=== PATIENT | male | born 1945 | race Caucasian/White ===

== ENCOUNTER 2019-07-28 06:00 | Outpatient (RCR) | payer OTHER, SELFPAY | END 2019-08-23 23:59 | disposition home or self-care (01) | LOC: SPT 06:00 | PROVIDERS: Family Provider Nurse Practitioner; PCP Nurse Practitioner; Referring Provider Orthopaedic Surgery; Visit Provider Orthopaedic Surgery | DX: M19.012 Primary osteoarthritis, left shoulder (principal); M75.102 Unspecified rotator cuff tear or rupture of left shoulder, not specified as traumatic | CPT/HCPCS: 97110; 97162; G0283 ==

== ENCOUNTER 2019-08-24 06:00 | Outpatient (RCR) | payer OTHER, SELFPAY | END 2019-09-14 14:19 | disposition home or self-care (01) | LOC: SPT 06:00 | PROVIDERS: PCP Nurse Practitioner; Visit Provider Orthopaedic Surgery | DX: M19.012 Primary osteoarthritis, left shoulder (principal); M75.102 Unspecified rotator cuff tear or rupture of left shoulder, not specified as traumatic | CPT/HCPCS: 97110; G0283 ==

== ENCOUNTER 2020-03-31 07:48 | Outpatient (CLI) | payer OTHER, SELFPAY ==
--- NOTE | 2020-03-31 07:54 | MR_ITS ---
WS: [id number] MRI CERVICAL SPINE HISTORY: CERVICAL PAIN COMPARISON: None available. Slight increase in the cervical lordosis. Posterior cervical alignment is normal. Mild disc desiccation and small osteophytes throughout the cervical spine. Mild anterior wedging of T 3. No edema is noted within the vertebral body. No cervical fractures. Signal within the cord is norm al. Craniocervical junction, C1 and C2 relationship, odontoid process and soft tissues are normal. C2-C3: Normal. C3-C4: Very shallow central disc protrusion without stenosis. Mild facet joint arthritis. There is a small amount of marrow edema in the LEFT facets with fluid in the facet joint. C4-C5: Shallow central disc protrusion. Small osteophytes with only mild foraminal narrowing. C5-C6: Small LEFT foraminal osteophytes. No high-grade stenosis. C6-C7: Small osteophytes with no stenosis. C7-T1: Very shallow central disc protrusion. No cord contact. Paraspinal soft tissue are normal. MR/MR cervical spin wo con* [id number] IMPRESSION: 1. No cervical spine fracture or significant stenosis. 2. Edema within the LEFT facets of C3-4 and a small amount of fluid in the fac et joint. May be posttraumatic or postinflammatory. 3. Mild anterior wedging of T3 without acute marrow edema.
== END 2020-03-31 07:49 | disposition home or self-care (01) ==
LOC: RADSHAW 07:50
PROVIDERS: PCP Nurse Practitioner; Visit Provider Nurse Practitioner
DX: M48.54XA Collapsed vertebra, not elsewhere classified, thoracic region, initial encounter for fracture (principal); R60.0 Localized edema
CPT/HCPCS: 72141

== ENCOUNTER 2020-05-31 14:16 | Outpatient (CLI) | payer OTHER, SELFPAY ==
--- NOTE | 2020-05-31 15:00 | USCV_ITS ---
Sofia Abdullahi Age: 74 Gender: M : 1945 Exam Date: 05/31/2020 14:48 Ordering Phys: Orion Pichardo M.D ([email or web address]) Technologist: Misa Rey [place] [facility] [place]: [place] BP: / HR: 53 Rhythm: Sinus Technical Quality: Adequate MEASUREMENTS (Male / Female) Normal Values 2D ECHO LV Diastolic Diameter PLAX 5.6 cm 4.2 - 5.9 / 3.9 - 5.3 cm LV Systolic Diameter PLAX 3.6 cm LV Chamber Size 5.6 cm IVS Diastolic Thickness 1.4 cm 0.6 - 1.0 / 0.6 - 0.9 cm IVS Systolic Thickness 1.9 cm LVPW Diastolic Thickness 0.9 cm 0.6 - 1.0 / 0.6 - 0.9 cm LVPW Systolic Thickness 1.0 cm RV Chamber Size 3.9 cm LVOT Diameter 2.0 cm LV Ejection Fraction 2D Teich 65.7 % LV Ejection Fraction MOD 2C 67.3 % LV Ejection Fraction 2C AL 68.5 % LA Diameter 4.2 cm LA Width 4.9 cm LA Height 5.7 cm RA Width 4.8 cm RA Height 5.9 cm Aorta at Sinotubular Diameter 2.6 cm M-MODE LV Diastolic Diameter MM 5.5 cm 4.2 - 5.9 / 3.9 - 5.3 cm LV Systolic Diameter MM 3.4 cm LV Ejection Fraction MM Teich 68.0 % IVS Diastolic Thickness MM 1.2 cm 0.6 - 1.0 / 0.6 - 0.9 cm IVS Systolic Thickness MM 2.1 cm LVPW Diastolic Thickness MM 1.4 cm 0.6 - 1.0 / 0.6 - 0.9 cm LVPW Systolic Thickness MM 1.8 cm RV Diastolic Diameter MM 1.3 cm Aortic Annulus Diameter 3.1 cm LA Ao Ratio MM 1.4 MV E Point Septal Separation 0.3 cm DOPPLER AV Peak Velocity 142.0 cm/s LVOT Peak Velocity 110.0 cm/s AV Area Cont Eq vti 2.3 cm squared AV Area Cont Eq pk 2.5 cm squared MV Area PHT 4.0 cm squared Mitral E to A Ratio 3.2 MV E' Velocity 53.5 cm/s Mitral E to MV E' Ratio 10.1 Mitral E to LV E' Lateral Ratio 8.6 Mitral E to LV E' Septal Ratio 12.3 TR Peak Velocity 211.7 cm/s TR Peak Gradient 17.9 mmHg TR Mean Velocity 175.2 cm/s TR Mean Gradient 12.7 mmHg TR Velocity Time Integral 51.8 cm TV Peak E Velocity 66.0 cm/s Right Atrial Pressure 3.0 mmHg Pulmonary Artery Systolic Pressu 20.9 mmHg PV Peak Velocity 94.0 cm/s RV Acceleration Time 0.1 s RV Ejection Time 0.3 s RV AcT/ET 0.3 FINDINGS Left Ventricle Normal left ventricular size. LV systolic function is normal with EF of 55 to 60%. No regional wall motion abnormalities are seen. Normal diastolic filling pattern. Right Ventricle The right ventricle is normal in size and function. Right Atrium The right atrium is normal in size. Left Atrium The left atrium is dilated Mitral Valve Structurally normal mitral valve without significant stenosis or prolapse. There is trace mitral regurgitation. Aortic Valve Structurally normal aortic valve without significant sclerosis or stenosis. There is no aortic regurgitation. Tricuspid Valve Structurally normal tricuspid valve without significant stenosis or regurgitation. Insufficient TR jet to calculate RVSP Pulmonic Valve Structurally normal pulmonic valve without significant stenosis. There is no pulmonic regurgitation. Pericardium Normal pericardium without effusion. Aorta Normal ascending aorta dimension. CONCLUSIONS LV systolic function is normal with EF of 55-60% Diastolic function is normal LV is dilated Trace aortic regurgitation is noted. Trace mitral regurgitation is seen No comparison studies are available. Orion Pichardo MD (Electronically Signed) Final Date: 10 June 2020 15:24 S
== END 2020-05-31 14:17 | disposition home or self-care (01) ==
LOC: RAD 14:19
PROVIDERS: PCP Nurse Practitioner; Visit Provider Internal Medicine
DX: R00.1 Bradycardia, unspecified (principal); R06.02 Shortness of breath; I08.0 Rheumatic disorders of both mitral and aortic valves
CPT/HCPCS: 93306

== ENCOUNTER → 2020-08-04 08:58 | Outpatient (BNVA) | payer OTHER, SELFPAY | PROVIDERS: PCP Nurse Practitioner; Referring Provider Nurse Practitioner Family; Visit Provider Urology | DX: R97.20 Elevated prostate specific antigen [PSA] (principal); R33.9 Retention of urine, unspecified; N40.1 Benign prostatic hyperplasia with lower urinary tract symptoms; N52.9 Male erectile dysfunction, unspecified | CPT/HCPCS: 81003; G0103 ==

== ENCOUNTER 2020-08-11 10:48 | Outpatient (CLI) | payer OTHER, SELFPAY ==
--- NOTE | 2020-08-11 11:01 | USCV_ITS ---
Abdullahi Black Age: 75 Gender: M : 1945 Exam Date: 08/11/2020 10:46 Ordering Phys: Viky Washington Technologist: Exam Location: [facility] – [place] Indication: EDEMA RIGHT LEFT Brachial 160.00 mmHg Brachial 159.00 mmHg Pressure (mmHg) Waveform Pressure (mmHg) Waveform WILDLIFE CONSERVATIONIST 198.00 223.00 DPA 201.00 Ankle/Brachial Index 1.26 118.00 Pre-Exercise Toe Pressure 132.00 0.74 Pre-Exercise Toe/Brachial Index 0.83 FINDINGS Normal resting ANJELICA on the left side Noncompressible vessels on the right side Normal resting TBIs bilaterally CONCLUSIONS No evidence of any significant arterial obstruction, based on the above findings. Some features of arterial sclerosis bilaterally Dr Jamaal Jose MD [facility] (Electronically Signed) Final Date: 11 Aug 2020 19:01 S
== END 2020-08-11 10:49 | disposition home or self-care (01) ==
LOC: RAD 10:52
PROVIDERS: PCP Nurse Practitioner; Visit Provider Nurse Practitioner
DX: R60.9 Edema, unspecified (principal)
CPT/HCPCS: 93922

== ENCOUNTER 2020-09-29 10:44 | Emergency (ER) | payer OTHER, MEDICARE, SELFPAY ==
[2020-09-29 11:01] VITALS: BP 137/66; PULSE 59; RESP 18; TEMP 37; O2SAT 93; BMI 28.5
--- NOTE | 2020-09-29 11:52 | ECG_ITS ---
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 Measurements Intervals [place] Rate: 55 P: 43 [place]: 170 QRS: -20 QRSD: 104 T: 41 QT: 440 QTc: 424 Interpretive Statements SINUS BRADYCARDIA No previous ECG available for comparison Electronically Signed On 09-30-2020 6:15:15 CDT by Vy Sharp M.D. [id number]
[2020-09-29 12:12] VITALS: PULSE 57; RESP 19; O2SAT 91
[2020-09-29] MEDS: ipratropium-albuterol 3 mL Neb INHALATION (12:14)
[2020-09-29 12:19] VITALS: PULSE 60
--- NOTE | 2020-09-29 12:37 | ED_ITS ---
HPI - Weakness General: Chief complaint: Weakness Stated complaint: diarrhea, dizzy, body aches Time Seen by Provider: 09/29/20 11:42 History of Present Illness: HPI Narrative: The patient is a 75-year-old male who comes to the ER complaining of nausea and significant number of diarrhea as well as weakness. He had the Covid vaccine on September 21. His symptoms have been worsening for the past 6 days and he is slightly confused and hard of hearing. Answers questions appropriately when he is focused. He also says he has chronic COPD and has mild wheezing. MD Complaint: generalized weakness and lack of energy Onset (ago): day(s) (6) Duration: constant and progressively worsening Location: generalized Severity: moderate Relieving factors: none Exacerbating factors: none Context: other (Covid vaccine September 21) Associated symptoms: Reports nausea; Denies chest pain, chills, confusion, fever(s), headache(s) or vomiting Review of Systems General: Reports: 10 or more systems reviewed and unremarkable except in HPI and below Const: Reports: fatigue; Denies: fever(s) or chills Eyes: Denies: change in vision, blurry vision or eye redness ENMT: Denies: throat pain, swelling of lips/tongue, ear or mastoid pain or nasal congestion Card: Denies: chest pain, palpitations, irregular heart rhythm, edema, dyspnea on exertion or orthopnea Resp: Denies: dyspnea, productive cough or non-productive cough GI: Reports: nausea and diarrhea; Denies: abdominal pain, vomiting or GI cramping : Denies: flank pain, urinary frequency or urinary urgency Musc: Denies: neck pain, back pain, extremity pain, joint pain, joint redness, limited range of motion or muscle weakness Skin/Breast: Denies: rash, pruritus, erythema, skin pain or skin tenderness Neuro: Denies: headache(s), numbness in extremities, weakness in extremities, sensory changes, difficulty walking, dizziness, confusion or Slurred speech present Psych: Denies: anxiety or depression Endo: Denies: polyuria All/Imm: Denies: urticaria, throat swelling or tongue swelling PFSH ED PFSH: Medical History BPH loc w urin obs/LUTS Elevated PSA Erectile dysfunction Hyperlipidemia Hypertension Family History Father , AT AGE 70 Heart attack Mother , AT AGE 68 Heart attack Social History Smoking and tobacco status: never smoked Alcohol intake: former Marital status: Single Current occupational status: retired History of recent travel: No Physical Exam Const: COMMON NORMALS: no acute distress, average body habitus, patient oriented x3, no limitations, healthy appearing, alert and well nourished GENERAL APPEARANCE: cooperative, comfortable, well kempt and well developed ORIENTATION/CONSCIOUSNESS: Yes awake, Yes oriented to person, Yes oriented to place and Yes oriented to time HENMT: COMMON NORMALS: normocephalic, external ears normal and Normal external nose present HEAD & SCALP: normal to inspection and normocephalic NOSE: Normal external nose present EXTERNAL EAR: Yes external ears normal MOUTH: Normal oral and palatal mucosa present THROAT: posterior oropharynx normal Eye: COMMON NORMALS: Equal, round and reactive pupils present and EOMs intact bilaterally GENERAL EYE: appearance normal, both eyes and all related structures PUPIL: Yes Equal, round and reactive pupils present Neck/C-Spine: COMMON NORMALS: full ROM, no lymphadenopathy, no meningeal signs and no JVD GENERAL: Yes normal visual inspection Lymph: LYMPHATIC: no lymphadenopathy noted Chest: COMMONS NORMALS: normal inspection of the chest and normal palpation of entire chest wall Resp: COMMON NORMALS: normal respiratory effort, No retractions, No use of accessory muscles and percussion normal EFFORT & INSPECTION: Yes able to speak in complete sentences AUSCULTATION: wheezes PERCUSSION: percussion normal OTHER: Mild bilateral wheezing. Cardio: COMMON NORMALS: no JVD, regular rate, regular rhythm, S1 normal heart sound present, S2 normal heart sound present and Peripheral pulses 2+ throughout RATE: regular rate RHYTHM: regular rhythm HEART SOUNDS: S1 normal heart sound present and S2 normal heart sound present PERIPHERAL PULSES: Peripheral pulses 2+ throughout GI: COMMON NORMALS: Normal to inspection, nondistended, normoactive bowel sounds present, Soft to palpation, non-tender and no masses INSPECTION: Yes normal to inspection PALPATION: Yes Soft to palpation : COMMON NORMALS: Yes no CVA tenderness BLADDER/KIDNEY EXAM: Yes no CVA tenderness Back/Pelvis: COMMON NORMALS: no CVA tenderness, thoracic and lumbar spine normal to inspection, no thoracic nor lumbar tenderness and thoraco-lumbar ROM normal Extremity: COMMON NORMALS: normal to inspection, full ROM, capillary refill normal, no joint enlargement and no pedal edema GENERAL: Yes normal exam except as noted Neuro: COMMON NORMALS: patient oriented x3, CN's II-XII intact bilaterally, moves all extremities, no focal motor deficits, no sensory deficits noted and gait normal SENSORIUM/ORIENTATION: Yes alert, Yes oriented to person, Yes oriented to place and Yes oriented to time MENINGEAL SIGNS: Yes no meningeal signs Psych: COMMON NORMALS: mental status grossly normal, Normal thought process present, cooperative, normal affect and speech normal APPEARANCE: Yes well kempt ATTITUDE: Yes calm SPEECH: Yes normal speech THOUGHT PROCESS: Normal thought process present Skin: COMMON NORMALS: no rashes or lesions noted GENERAL SKIN EXAM: no rashes or lesions noted Course Vital Signs: Vital signs: Vital Signs Temperature 98.8 F 09/29/20 13:02 Pulse Rate 61 09/29/20 13:02 Respiratory Rate 18 09/29/20 13:02 Blood Pressure 137/63 09/29/20 13:02 Pulse Oximetry 93 09/29/20 13:02 MDM - Weakness MDM Narrative: Medical decision making narrative: Patient felt significantly improved after a liter of fluids and Zofran. He was requesting discharge. I filled out the paperwork. Follow-up with primary care physician Saturday and ER with worsening symptoms. Drink lots of fluids. Take Zofran to help with your nausea and vomiting. Lab Data: Labs: Lab Results 09/29/20 09/29/20 09/29/20 Range/Units 12:55 12:55 12:55 WBC 3.5 L (4.0-10.0) 10^3/ uL RBC 4.52 (4.1-5.3) 10^6/u L Hgb 13.8 (11.7-16.6) g/dL Hct 39.5 L (42.0-52.0) % MCV 87.4 (80-94) fL MCH 30.5 (28.0-34.0) pg MCHC 34.9 (30.0-36.0) g/dL RDW 11.5 L (12.1-15.1) % Plt Count 111 L (130-400) 10^3/c mm MPV 10.9 H (7.4-10.4) fL Neut % (Auto) 65.6 % Lymph % (Auto) 23.4 % [place] % (Auto) 10.7 % Eos % (Auto) 0.0 % Baso % (Auto) 0.0 % Neut # (Auto) 2.32 (1.8-7.7) 10^3/u L Lymph # (Auto) 0.8 (0.8-4.8) 10^3/u L [place] # (Auto) 0.4 (0.2-0.9) 10^3/u L Eos # (Auto) 0.0 (0.0-0.8) 10^3/u L Baso # (Auto) 0.0 (0.0-0.1) 10^3/u L Nucleated RBC % (a uto) 0 % Nucleated RBCs # 0.0 /100WBC Sodium 133 L (136-145) mmol/L Potassium 3.8 (3.5-5.1) mmol/L Chloride 98 (98-107) mmol/L Carbon Dioxide 23 (22-29) mmol/L Anion Gap 15.8 (5-19) BUN 17 (8-23) mg/dL Creatinine 0.9 (0.7-1.2) mg/dL GFR Calculation Not Reportable Glucose 130 H (65-115) mg/dL Calculated Osmolal ity 279 L (285-295) mOsm/k g Calcium 8.0 L (8.5-10.5) mg/dL Total Bilirubin 0.9 (0.15-1.2) mg/dL AST 39 (0-40) U/L ALT 27 (0-41) U/L Alkaline Phosphata se 72 (40-130) IU/L Troponin T Baselin e 16 H (0-15) ng/L Total Protein 6.1 L (6.6-8.7) g/dL Albumin 3.7 (3.5-5.2) g/dL Globulin 2.4 (1.3-4.6) g/dL Discharge Plan Discharge Patient Disposition: Home Clinical Impression: Dehydration, Diarrhea Condition: Stable Prescriptions: New ondansetron 4 mg tablet,disintegrating 4 mg PO Q8H PRN (Reason: Nausea And Vomiting) 4 Days Qty: 12 RF: 0 No Action tamsulosin 0.4 mg capsule 0.4 mg PO BID Qty: 180 RF: 3 sildenafil 100 mg tablet 100 mg PO DAILY PRN (Reason: Edema) RF: 0 finasteride 5 mg tablet 5 mg PO DAILY RF: 0 Vitamin C 1 tab PO DAILY RF: 0 Vitamin D3 1 tab pt DAILY RF: 0 zinc 1 tab PO DAILY RF: 0 Discharge Orders: Discharge ED (Routine); Ordered 09/29/20 Ordered By: Jayson Humphrey Referrals: Viky Washington FNP [Primary Care Provider] - Discharge Diet: Advance as tolerated Discharge Activity: Resume usual activity Patient Instructions: Diarrhea - Adult, Dehydration (ED), Opioid Safety Activity Restrictions/Additional Instructions: You possibly have diarrhea related to a side effect from a vaccine. Please drink lots of fluids and use the Zofran to help with your nausea. Return to the ER at anytime with worsening symptoms otherwise follow-up with your primary care physician Saturday. Coding Level of Care Code ED Planishing Press Operator for Agustin Fwd Exam Comprehensive
[2020-09-29] MEDS: sodium chloride 0.9% 1,000 ML 999 ML IV (13:01)
[2020-09-29 13:02] VITALS: BP 137/63; PULSE 61; RESP 18; TEMP 37.1; O2SAT 93
[2020-09-29] MEDS: ondansetron 2 mg/ML SDV 2 mL 4 MG IVP (13:02)
[2020-09-29 13:17] LABS: Hematocrit 39.5 % (42.0-52.0); Hemoglobin 13.8 g/dL (11.7-16.6); Lymphocytes # 0.8 10^3/uL (0.8-4.8); Lymphocytes % 23.4 %; Mean Corpuscular HGB Conc 34.9 g/dL (30.0-36.0); Mean Corpuscular Hemoglobin 30.5 pg (28.0-34.0); Mean Corpuscular Volume 87.4 fL (80-94); Mean Platelet Volume 10.9 fL (7.4-10.4); Monocytes # 0.4 10^3/uL (0.2-0.9); Monocytes % 10.7 %; Neutrophils # 2.32 10^3/uL (1.8-7.7); Neutrophils % 65.6 %; Nucleated Red Blood Cells % 0 %; Platelet Count 111 10^3/cmm (130-400); Red Blood Count 4.52 10^6/uL (4.1-5.3); Red Cell Distribution Width 11.5 % (12.1-15.1); White Blood Count 3.5 10^3/uL (4.0-10.0)
[2020-09-29 13:32] LABS: Troponin(5th) Baseline 16 ng/L (0-15)
[2020-09-29 13:36] LABS: Alanine Aminotransferase 27 U/L (0-41); Albumin Level 3.7 g/dL (3.5-5.2); Alkaline Phosphatase 72 IU/L (40-130); Anion Gap 15.8 (5-19); Aspartate Amino Transferase 39 U/L (0-40); Blood Urea Nitrogen 17 mg/dL (8-23); Carbon Dioxide 23 mmol/L (22-29); Chloride 98 mmol/L (98-107); Globulin 2.4 g/dL (1.3-4.6); Glucose 130 mg/dL (65-115); Osmolality Calculated 279 mOsm/kg (285-295); Potassium 3.8 mmol/L (3.5-5.1); Sodium 133 mmol/L (136-145); Total Bilirubin 0.9 mg/dL (0.15-1.2); Total Protein 6.1 g/dL (6.6-8.7)
--- NOTE | 2020-09-29 13:52 | ECG_ITS ---
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 Measurements Intervals [place] Rate: 56 P: 14 [place]: 164 QRS: -20 QRSD: 107 T: 41 QT: 451 QTc: 436 Interpretive Statements SINUS BRADYCARDIA MINIMAL VOLTAGE CRITERIA FOR LVH, CONSIDER NORMAL VARIANT [MEETS CRITERIA IN ONE OF: R(aVL), S(V1), R(V5), R(V5/V6)+S(V1)] Compared to ECG 09/29/2020 12:02:05 No significant changes Electronically Signed On 09-30-2020 6:36:27 CDT by Vy Sharp M.D. [id number]
[2020-09-29 14:23] VITALS: BP 133/69; PULSE 62; RESP 18; TEMP 37.2; O2SAT 97
== END 2020-09-29 14:33 | disposition home or self-care (01) ==
PROVIDERS: Emergency Provider Family Medicine; PCP Nurse Practitioner
DX: E86.0 Dehydration (principal); R19.7 Diarrhea, unspecified; E78.5 Hyperlipidemia, unspecified; I10 Essential (primary) hypertension
CPT/HCPCS: 80053; 84484; 85025; 93005; 94640; 96361; 96374; 99284; J2405; J7030

== ENCOUNTER 2020-09-30 06:22 | Emergency (ER) | payer OTHER, MEDICARE, SELFPAY ==
[2020-09-30 06:59] VITALS: BP 123/63; PULSE 61; RESP 16; TEMP 37.4; O2SAT 93; BMI 28.5
--- NOTE | 2020-09-30 07:30 | ED_ITS ---
HPI - COVID General: Chief Complaint: COVID symptoms Stated Complaint: COVID (+) YESTERDAY, FEELING WORSE TODAY Time Seen by Provider: 09/30/20 07:06 Triage information: Has fever, cough or shortness of breath . Exposure to COVID + person last 14 days History of Present Illness: HPI Narrative: 75-year-old male with a known history of Covid positive status he was diagnosed 1 week ago but have been having symptoms for several days prior to that he is outside of a 10-day window at this point. He was seen yesterday with nausea and vomiting poor oral intake and received IV fluids. He continues to have myalgias headache anosmia and cough cough has been nonproductive. He is not having any vomiting or diarrhea at this point. MD complaint: known COVID positive Prior testing date: 09/23/20 COVID 19 common symptoms: positive fever(s), chills, cough, non-productive cough, dyspnea, fatigue, body aches, headache(s), loss of sense of smell and/or taste, throat pain and nasal congestion; negative productive cough, vomiting or diarrhea COVID 19 other sytmptoms: negative chest pain or requiring oxygen Onset (ago): day(s) Severity: mild COVID Results: No Data to Display Review of Systems Const: Reports: fever(s), chills, body aches and fatigue ENMT: Reports: throat pain and nasal congestion Card: Denies: chest pain, edema, dyspnea on exertion or orthopnea Resp: Reports: dyspnea and non-productive cough; Denies: productive cough GI: Denies: vomiting or diarrhea : Denies: flank pain, dysuria, urinary frequency or urinary urgency Skin/Breast: Denies: rash or pruritus Neuro: Reports: headache(s) PFSH ED PFSH: Medical History BPH loc w urin obs/LUTS Elevated PSA Erectile dysfunction Hyperlipidemia Hypertension Family History Father , AT AGE 70 Heart attack Mother , AT AGE 68 Heart attack Social History Smoking and tobacco status: never smoked Alcohol intake: former Marital status: Single Current occupational status: retired History of recent travel: No Physical Exam Const: COMMON NORMALS: no acute distress GENERAL APPEARANCE: cooperative and comfortable ORIENTATION/CONSCIOUSNESS: Yes awake, Yes oriented to person, Yes oriented to place and Yes oriented to time HENMT: COMMON NORMALS: normocephalic, atraumatic and hearing grossly normal bilaterally HEAD & SCALP: normocephalic and atraumatic Neck/C-Spine: COMMON NORMALS: no JVD Resp: COMMON NORMALS: normal respiratory effort, No retractions, No use of accessory muscles and clear to auscultation bilaterally AUSCULTATION: clear to auscultation bilaterally Cardio: COMMON NORMALS: no JVD, regular rate, regular rhythm and No murmurs present (Cardio) RATE: regular rate RHYTHM: regular rhythm GI: COMMON NORMALS: Soft to palpation and No hepatosplenomegaly present AUSCULTATION: Yes normoactive bowel sounds PALPATION: Yes Soft to palpation, No Tenderness to palpation present (GI), No Guarding due to palpation present (GI) and Yes No hepatosplenomegaly present Extremity: COMMON NORMALS: normal to inspection, capillary refill normal, no clubbing, cyanosis or edema, no calf tenderness and no pedal edema Neuro: SENSORIUM/ORIENTATION: Yes oriented to person, Yes oriented to place and Yes oriented to time Skin: COMMON NORMALS: no rashes or lesions noted GENERAL SKIN EXAM: no rashes or lesions noted Course Vital Signs: Vital signs: Vital Signs Temperature 99.3 F 09/30/20 06:59 Pulse Rate 61 09/30/20 06:59 Respiratory Rate 16 09/30/20 07:47 Blood Pressure 123/63 09/30/20 06:59 Pulse Oximetry 93 09/30/20 07:47 MDM - COVID MDM Narrative: Medical decision making narrative: Vital signs are normal auscultation of the chest is clear to auscultation. There is no tachycardia no hypotension. Recommend continued p.o. fluids. His sats are good. Unfortunately he is past the timeframe for monoclonal antibody infusion. Supportive cares and follow-up with his primary care doctor as needed. We discussed the usual symptoms and course of the disease. COVID Results: No Data to Display Discharge Plan Discharge Patient Disposition: Home Clinical Impression: COVID-19 Condition: Stable Prescriptions: No Action tamsulosin 0.4 mg capsule 0.4 mg PO BID Qty: 180 RF: 3 sildenafil 100 mg tablet 100 mg PO DAILY PRN (Reason: Edema) RF: 0 finasteride 5 mg tablet 5 mg PO DAILY RF: 0 Vitamin C 1 tab PO DAILY RF: 0 Vitamin D3 1 tab pt DAILY RF: 0 zinc 1 tab PO DAILY RF: 0 ondansetron 4 mg tablet,disintegrating 4 mg PO Q8H PRN (Reason: Nausea And Vomiting) 4 Days Qty: 12 RF: 0 Discharge Orders: Discharge ED (Routine); Ordered 09/30/20 Ordered By: Ke Wiggins Referrals: Viky Washington FNP [Primary Care Provider] - Discharge Diet: Usual diet Discharge Activity: Increase activity as tolerated Patient Instructions: Opioid Safety Coding Level of Care Code ED Filter Pulp Washer for Agustin Hankins
[2020-09-30 07:34] VITALS: O2SAT 93
[2020-09-30 07:47] VITALS: RESP 16; O2SAT 93
== END 2020-09-30 07:40 | disposition home or self-care (01) ==
PROVIDERS: Emergency Provider Family Medicine; PCP Nurse Practitioner
DX: U07.1 COVID-19 (principal); E78.5 Hyperlipidemia, unspecified; I10 Essential (primary) hypertension
CPT/HCPCS: 99281

== ENCOUNTER 2020-10-03 02:21 | Emergency (ER) | payer OTHER, MEDICARE, SELFPAY ==
[2020-10-03 02:27] VITALS: BP 148/76; PULSE 61; RESP 18; TEMP 36.9; O2SAT 92; BMI 28.5
[2020-10-03 07:19] VITALS: BP 148/76; PULSE 61; O2SAT 92
--- NOTE | 2020-10-03 09:21 | ED_ITS ---
HPI - General Adult General: Chief complaint: General Medical Stated complaint: BEING DEHYDRATED Time Seen by Provider: 10/03/20 03:12 History of Present Illness: HPI narrative: 89-year-old male who is more than 10 days out of his diagnosis of COVID-19. He presents with generalized weakness, malaise, cough, and congestion. He is not overly short of breath. He is not been having fever. He claims he is dehydrated , even though he has drank significant amounts of water and Powerade. Onset (ago): day(s) Radiation: non-radiation Pain Consistency: other Relieving factors: none Exacerbating factors: none Associated symptoms: Reports cough, headache(s), malaise and nausea; Deny chest pain, confusion, diaphoresis, dyspnea, fevers/chills, rash or vomiting Review of Systems Const: Reports: malaise; Denies: diaphoresis Card: Denies: chest pain Resp: Denies: dyspnea GI: Reports: nausea; Denies: vomiting Skin/Breast: Denies: rash Neuro: Reports: headache(s); Denies: confusion PFSH ED PFSH: Medical History BPH loc w urin obs/LUTS Elevated PSA Erectile dysfunction Hyperlipidemia Hypertension Family History Father , AT AGE 70 Heart attack Mother , AT AGE 68 Heart attack Social History Smoking and tobacco status: never smoked Alcohol intake: former Marital status: Single Current occupational status: retired History of recent travel: No Physical Exam Const: GENERAL APPEARANCE: well developed ORIENTATION/CONSCIOUSNESS: Yes oriented to person, Yes oriented to place and Yes oriented to time HENMT: COMMON NORMALS: normocephalic, external ears normal and Normal external nose present HEAD & SCALP: normocephalic FACE & SINUS: normal facial exam NOSE: Normal external nose present and No nasal discharge present EXTERNAL EAR: Yes external ears normal Eye: COMMON NORMALS: Equal, round and reactive pupils present, EOMs intact bilaterally and conjunctivae normal EYELID: eyelids normal CONJUNCTIVA: Yes conjunctivae normal PUPIL: Yes Equal, round and reactive pupils present Neck/C-Spine: GENERAL: No tracheal deviation Chest: COMMONS NORMALS: normal inspection of the chest CHEST: No tenderness Resp: COMMON NORMALS: clear to auscultation bilaterally EFFORT & INSPECTION: No tachypneic, No respiratory distress, No retractions, No uses accessory muscles and No tracheal deviation AUSCULTATION: clear to auscultation bilaterally, no rhonchi, no wheezes and lung sounds not diminished Cardio: COMMON NORMALS: regular rate and regular rhythm RATE: regular rate RHYTHM: regular rhythm HEART SOUNDS: no murmurs PERIPHERAL PULSES: radial pulses present GI: INSPECTION: No abdominal distension AUSCULTATION: No Hyperactive bowel sounds present and No Hypoactive bowel sounds present PALPATION: No Guarding due to palpation present (GI) and No Rigid due to palpation Neuro: SENSORIUM/ORIENTATION: Yes oriented to person, Yes oriented to place and Yes oriented to time Psych: COMMON NORMALS: mental status grossly normal Skin: COMMON NORMALS: no rashes or lesions noted GENERAL SKIN EXAM: no rashes or lesions noted Course Vital Signs: Vital signs: Vital Signs Temperature 98.5 F 10/03/20 02:27 Pulse Rate 61 10/03/20 07:19 Respiratory Rate 18 10/03/20 02:27 Blood Pressure 148/76 10/03/20 07:19 Pulse Oximetry 92 10/03/20 07:19 MDM - General Adult MDM Narrative: Medical decision making narrative: Clinically not dehydrated. He is not tachycardic. He is afebrile here. Believe symptomatic treatment is his best course. He will be placed on guaifenesin for expectorant, and dexamethasone hopefully to help with malaise, muscle aches, etc. PCP follow-up. Discharge Plan Discharge Patient Disposition: Home Clinical Impression: COVID-19 Condition: Stable Prescriptions: New dexamethasone 6 mg tablet 6 mg PO DAILY Qty: 5 RF: 0 guaifenesin 600 mg tablet extended release 12hr 600 mg PO BID PRN (Reason: congestion) Qty: 14 RF: 0 No Action tamsulosin 0.4 mg capsule 0.4 mg PO BID Qty: 180 RF: 3 sildenafil 100 mg tablet 100 mg PO DAILY PRN (Reason: Edema) RF: 0 finasteride 5 mg tablet 5 mg PO DAILY RF: 0 Vitamin C 1 tab PO DAILY RF: 0 Vitamin D3 1 tab pt DAILY RF: 0 zinc 1 tab PO DAILY RF: 0 Discharge Orders: Discharge ED (Routine); Ordered 10/03/20 Ordered By: Geoffrey Boo Referrals: Viky Washington FNP [Primary Care Provider] - 1-3 days Discharge Diet: Advance as tolerated Discharge Activity: Increase activity as tolerated Patient Instructions: Acute Bronchitis (ED), Fatigue (ED) Activity Restrictions/Additional Instructions: Continue to drink plenty of liquids. Medications as directed. Return for worsening weakness despite treatment, fever greater than 100, other concerning symptoms. Coding Level of Care Code ED Seasonal Retail Merchandiser for [employer]
== END 2020-10-03 04:50 | disposition home or self-care (01) ==
PROVIDERS: Emergency Provider Emergency Medicine; PCP Nurse Practitioner
DX: U07.1 COVID-19 (principal)
CPT/HCPCS: 99282

== ENCOUNTER → 2020-11-03 09:26 | Outpatient (BNVA) | payer OTHER, MEDICARE, SELFPAY | PROVIDERS: PCP Nurse Practitioner; Visit Provider Urology | DX: N40.1 Benign prostatic hyperplasia with lower urinary tract symptoms (principal) | CPT/HCPCS: 81003 ==

== ENCOUNTER → 2020-11-11 09:35 | Outpatient (BNVA) | payer OTHER, SELFPAY | PROVIDERS: PCP Nurse Practitioner; Visit Provider Urology | DX: N40.1 Benign prostatic hyperplasia with lower urinary tract symptoms (principal); Z20.822 Contact with and (suspected) exposure to COVID-19 | CPT/HCPCS: 87635 ==

== ENCOUNTER 2020-11-17 16:13 | Observation (INO) | payer OTHER, SELFPAY ==
[2020-11-11 10:33] VITALS: BMI 26.4
--- NOTE | 2020-11-11 11:12 | ANES.PREANE2 ---
Pre-Anesthetic Assessment Pre-Anesthetic Assessment: Height/Weight: Height 1.83 m Weight 88.451 kg Preop Diagnosis: prostate cancer Proposed Procedure: Operation Date: 11/17/20 12:00 Proposed Procedures p Cystoscopy 18252 N40.1(Not Applicable) - Tab Royal MD s Transurethral Resection/Vaporization Of Prostate(Not Applicable) - Tab Royal MD Familial anesthetic complications: None Social: Social History: No alcohol and No tobacco Exam: Pre-Anes Outpt Exam: alert, oriented x 3, clear to auscultation bilaterally and regular rate & rhythm Airway: Cervical ROM: WNL MP: 1 Dentition: Full Pulmonary: Pulmonary: COPD Comments: covid-19 (doign well now) CV/HEM: CV/HEM: Arrythmia (bradycardia) and HTN Comments: ECHO CONCLUSIONS LV systolic function is normal with EF of 55-60% Diastolic function is normal LV is dilated Trace aortic regurgitation is noted. Trace mitral regurgitation is seen No comparison studies are available Metabolic: Metabolic: Hyperlipidemia Anesthetic Plan: ASA status: 3 Anesthesia: General Risk of > 500 ml blood loss (7ml/kg in children): No PFSH Anesthesia PFSH: Medical History BPH loc w urin obs/LUTS Elevated PSA Erectile dysfunction Hyperlipidemia Hypertension Family History Father , AT AGE 70 Heart attack Mother , AT AGE 68 Heart attack Social History Smoking and tobacco status: never smoked Alcohol intake: former Marital status: Single Current occupational status: retired History of recent travel: No Data Anesthesia Cardiac Studies: Holter Monitor 04/20/20
[2020-11-17] VITALS (15 sets, daily range): BP systolic 119–160; BP diastolic 71–95; PULSE 44–58; RESP 11–22; TEMP 36–36.6; O2SAT 95–97; BMI 26.4
[2020-11-17 11:54] LABS: Basophils % 0.3 %; Eosinophils # 0.3 10^3/uL (0.0-0.8); Eosinophils % 4.5 %; Hematocrit 39.2 % (42.0-52.0); Hemoglobin 13.3 g/dL (11.7-16.6); Lymphocytes # 1.5 10^3/uL (0.8-4.8); Lymphocytes % 24.7 %; Mean Corpuscular HGB Conc 33.9 g/dL (30.0-36.0); Mean Corpuscular Hemoglobin 29.8 pg (28.0-34.0); Mean Corpuscular Volume 87.9 fl (80-94); Mean Platelet Volume 10.2 fL (7.4-10.4); Monocytes # 0.6 10^3/uL (0.2-0.9); Monocytes % 9.4 %; Neutrophils # 3.74 10^3/uL (1.8-7.7); Neutrophils % 60.8 %; Nucleated Red Blood Cells % 0 %; Platelet Count 151 10^3/cmm (130-400); Red Blood Count 4.46 10^6/uL (4.1-5.3); Red Cell Distribution Width 12.5 % (12.1-15.1); White Blood Count 6.2 10^3/uL (4.0-10.0)
[2020-11-17 12:21] LABS: Anion Gap 14.9 (5-19); Blood Urea Nitrogen 16 mg/dL (8-23); Calcium 8.6 mg/dL (8.5-10.5); Carbon Dioxide 25 mmol/L (22-29); Chloride 103 mmol/L (98-107); Glucose 98 mg/dL (65-115); Osmolality Calculated 289 mOsm/kg (285-295); Potassium 3.9 mmol/L (3.5-5.1); Sodium 139 mmol/L (136-145)
--- NOTE | 2020-11-17 12:43 | P.HPUD_ITS ---
Surgery/Procedure H&P Update DATE OF PROCEDURE: November 17, 2020 DATE H&P PERFORMED: 11/03/20 H&P UPDATE INFORMATION: I have reviewed H&P completed within last 30 days, I have examined patient prior to procedure, No changes to prior documentation and H&P is in [facility] [place] on date indicated PREOP DIAGNOSIS: Refractory BPH/obstruction PLANNED PROCEDURE: Operation Date: 11/17/20 12:00 Proposed Procedures p Cystoscopy 74809 N40.1(Not Applicable) - Tab Royal MD s Transurethral Resection/Vaporization Of Prostate(Not Applicable) - Tab Royal MD
[2020-11-17] MEDS: levofloxacin-dextrose 5 % 500 MG/100 ML PREMIX 100 MG IV (12:45)
--- NOTE | 2020-11-17 12:49 | P.ANESUD_ITS ---
Pre-Anesthetic Update Pre-Anesthetic Assessment: Date of Surgery/Procedure: 11/17/20 Preop Ana Laura gnosis: Refractory BPH/obstruction Proposed Procedure: Operation Date: 11/17/20 12:00 Proposed Procedures p Cystoscopy 57758 N40.1(Not Applicable) - Tab Royal MD s Transurethral Resection/Vaporization Of Prostate(Not Applicable) - Tab Royal MD Any changes to Pre-Anesthetic Assessment?: No Last Intake: Intake Last Liquid Date 11/17/20 Last Liquid Time 06:00 Last Solid Date 11/16/20 Last Solid Time 18:00 Labs Last 48hrs: Laboratory Results - last 48 hr 11/17/20 11/17/20 11:48 11:48 WBC 6.2 RBC 4.46 Hgb 13.3 Hct 39.2 L MCV 87.9 MCH 29.8 MCHC 33.9 RDW 12.5 Plt Count 151 MPV 10.2 Neut % (Auto) 60.8 Lymph % (Auto) 24.7 [place] % (Auto) 9.4 Eos % (Auto) 4.5 Baso % (Auto) 0.3 Neut # (Auto) 3.74 Lymph # (Auto) 1.5 [place] # (Auto) 0.6 Eos # (Auto) 0.3 Baso # (Auto) 0.0 Nucleated RBC % (a uto) 0 Nucleated RBCs # 0.0 Sodium 139 Potassium 3.9 Chloride 103 Carbon Dioxide 25 Anion Gap 14.9 BUN 16 Creatinine 0.8 GFR Calculation Not Reportable Glucose 98 Calculated Osmolal ity 289 Calcium 8.6 Vitals: Oxygen Delivery Me thod 11/17/20 10:49 Exam: Pre-Anes Outpt Exam: alert, oriented x 3, clear to auscultation bilaterally and regular rate & rhythm Cardiac Studies: Holter Monitor 04/20/20
[2020-11-17] MEDS: lidocaine 2% Urojet 20 mL TOPICAL (13:16)
--- NOTE | 2020-11-17 13:59 | P.OP_ITS ---
Operative Report Date of procedure: November 17, 2020 Pre-op Diagnosis: Refractory BPH/obstruction Post-op diagnosis: same Procedure Done: Cystoscopy, transurethral resection/vaporization of the prostate Pathology: Prostate chips sampling Surgeon: Genny Anesthesia: General Estimated blood loss: Less than 50 cc Urine output: Not measured Complications: None Findings: Trilobar enlargement the prostate with very large intravesically protruding median lobe. Wide open the completion of procedure with excellent hemostasis Condition: stable Disposition: PACU Brief History: Abdullahi is a very pleasant 75-year-old white male with a history of progressive bladder outlet obstructive symptoms with persistent on medical therapy for BPH. Cystoscopy revealed severe trabeculation cellule formation and a huge intravesically protruding median lobe. Ultimately he elected TURP/TUVP. Procedure: After routine preoperative evaluation examination and obtaining of informed consent he was taken to the operating suite on 11/16/2020 where general anesthesia was administered without difficulty after appropriate timeout was performed, SCDs confirmed to be functioning, preoperative antibiotics administered, beta-emma protocol confirmed. Positioned dorsolithotomy position paying careful attention to avoiding pressure points. Prepped and draped in the usual sterile fashion. 21 Micronesian cystoscope with 30 degree lens was introduced into the urethra meatus and advanced into the bladder under videoscopy. Bladder was systematically examined confirming findings seen in clinic. Urethra was calibrated with Seb sounds and easily accommodated 30 Micronesian. 2% lidocaine jelly was instilled into the urethra and a 25 Micronesian continuous- flow resectoscope sheath with visual obturator in place was advanced into the bladder without difficulty and the gyrus bipolar system was utilized for resection utilizing initially the super loop and at the completion of the procedure the button probe. The orifices were identified to be well away from the bladder neck. Easily identifiable. The verumontanum was also easily identifiable. Super loop was used to resect initially the intravesically protruding median lobe down to the circular fibers of the bladder neck. Both lateral lobes were then resected from the bladder neck out to but not distal to the verumontanum. After adequate level of tissue was removed to open up the fossa the button probe was used for further vaporization of the lateral lobes and the floor the prostate paying careful attention to avoiding straying into the bladder near the orifices or distal to the verumontanum. The fossa was sculpted and confirmed hemostatic at the completion of the procedure and wide open A 22 Micronesian three-way Granger catheter was easily advanced into the bladder, 30 cc placed in the balloon, efflux was clear, low flow CBI was initiated with normal saline. Tolerated the procedure well without complications and was awakened in the operating room and returned to the recovery room in stable condition.
--- NOTE | 2020-11-17 16:23 | ANE.PACU2 ---
Inpatient post-anesthesia follow up: Airway intact: Yes Vital signs: Temperature 97.8 F Pulse Rate 48 Respiratory Rate 16 Blood Pressure 158/80 Pulse Oximetry 97 Oxygen Delivery Me thod Room Air Oxygen Flow Rate Fraction of Inspir ed Oxygen Hydration adequate: Yes Nausea and vomiting: No Pain level: 2 Mental status: Baseline
[2020-11-17] MEDS: dextrose 5%-sod chloride 0.9% 1,000 ML 50 ML IV (18:41)
[2020-11-17] MEDS: phenazopyridine 100 mg Tablet 200 MG PO (18:41)
[2020-11-17] MEDS: docusate sodium 100 mg Capsule PO (18:41)
[2020-11-18 02:15] VITALS: PULSE 58; O2SAT 95
[2020-11-18 03:38] VITALS: BP 152/77; PULSE 55; RESP 16; TEMP 36.6; O2SAT 95
[2020-11-18] MEDS: levoFLOXacin 500 mg Tablet PO (05:13)
--- NOTE | 2020-11-18 05:38 | PC.NURSE ---
Patient remained in bed throughout night without complaint. No c/o of pain, VSS, tolerating CBI and patent at a slow drip with yellow output. No new events over night, no needs at this time. AAOx3, room clutter free with call light in reach and tolerating diet. Will report and handoff patient to oncoming nurse at shift change.
--- NOTE | 2020-11-18 06:41 | P.DS_ITS ---
Discharge Providers Date of Admission: 11/17/20 16:13 Date of Discharge: November 18, 2020 Attending Provider at Admission: Tab Royal MD Attending Provider at Discharge: Tab Royal MD Primary Care Provider: SANTHOSH Callejas Reason for Visit Reason for Visit: BPH with obstruction Hospital Course Hospital Course He was admitted on 11/17/2020, day of surgery (TURP). Procedure went well. Intraoperative findings included a very large intravesically protruding median lobe and lateral lobe hypertrophy. At the completion of the procedure he was hemostatic and the prostatic fossa was wide open. Postoperatively he did well. The Granger catheter was removed on postoperative day #1 followed by 6 bottle void but he failed to void adequately and the catheter was replaced. Urine remained clear. Discharge on the afternoon of postoperative day #1 in stable condition. He was trained in a leg bag night bag changing. We will keep on antibiotics until catheter removed. Voiding trial and possible SCIC instruction on follow-up 11/23/2020. Physical Exam Const: COMMON NORMALS: no acute distress, alert and well nourished GENERAL APPEARANCE: well kempt and well developed ORIENTATION/CONSCIOUSNESS: not confused HENMT: COMMON NORMALS: normocephalic and atraumatic HEAD & SCALP: normocephalic and atraumatic Eye: COMMON NORMALS: conjunctivae normal CONJUNCTIVA: Yes conjunctivae normal Neck/C-Spine: COMMON NORMALS: full ROM GENERAL: Yes normal visual inspection Resp: COMMON NORMALS: normal respiratory effort EFFORT & INSPECTION: No labored and No Actively coughing Neuro: SENSORIUM/ORIENTATION: Yes alert Psych: COMMON NORMALS: mental status grossly normal APPEARANCE: Yes grossly normal and Yes well kempt ATTITUDE: Yes calm and Yes engaged Skin: COMMON NORMALS: no rashes or lesions noted and no jaundice GENERAL SKIN EXAM: no rashes or lesions noted Urinary Catheter Management^: 3-way Urethral CBI: Cath Placed During This Visit: yes Urinary Catheter Date of Insertion: 11/17/20 Urinary Catheter Time of Insertion: 13:47 Discharge Data Data Completed and Pending: Pending at discharge Category Date Time Status Pathology: Surgic al [PTH] Routine Pth 11/17/20 14:02 Ordered Labs from last 24 hours 11/17/20 11/17/20 11:48 11:48 WBC 6.2 RBC 4.46 Hgb 13.3 Hct 39.2 L MCV 87.9 MCH 29.8 MCHC 33.9 RDW 12.5 Plt Count 151 MPV 10.2 Neut % (Auto) 60.8 Lymph % (Auto) 24.7 [place] % (Auto) 9.4 Eos % (Auto) 4.5 Baso % (Auto) 0.3 Neut # (Auto) 3.74 Lymph # (Auto) 1.5 [place] # (Auto) 0.6 Eos # (Auto) 0.3 Baso # (Auto) 0.0 Nucleated RBC % (a uto) 0 Nucleated RBCs # 0.0 Sodium 139 Potassium 3.9 Chloride 103 Carbon Dioxide 25 Anion Gap 14.9 BUN 16 Creatinine 0.8 GFR Calculation Not Reportable Glucose 98 Calculated Osmolal ity 289 Calcium 8.6 Vitals: Last Vital Signs Temp 97.8 F 11/18/20 03:38 Pulse 55 L 11/18/20 03:38 Resp 16 11/18/20 03:38 BP 152/77 11/18/20 03:38 Pulse Ox 95 11/18/20 03:38 Discharge Plan Discharge Patient Disposition: Home Condition: Stable Prescriptions: New levofloxacin 250 mg tablet 250 mg PO DAILY 7 Days Qty: 7 RF: 0 Continued ramipril 1.25 mg capsule 1.25 mg PO DAILY RF: 0 amlodipine 10 mg tablet 10 mg PO DAILY RF: 0 tadalafil [Cialis] 5 mg tablet 5 mg PO DAILY RF: 0 sildenafil 100 mg tablet 100 mg PO DAILY PRN (Reason: Edema) RF: 0 finasteride 5 mg tablet 5 mg PO DAILY RF: 0 Vitamin C 1 tab PO DAILY RF: 0 zinc 1 tab PO DAILY RF: 0 Discharge Orders: Discharge Order (Routine); Ordered 11/18/20 Ordered By: Tab Royal Referrals: Tab Royal MD [Physician] - 11/23/20 (Voiding trial, SCIC instruction) Discharge Diet: Usual diet Discharge Activity: Limit activity as instructed Patient Instructions: Opioid Safety Activity Restrictions/Additional Instructions: 1. You can use either leg bag or night bag pending your preference. 2. We will see you back mid next week for catheter removal and voiding trial. Possible self-catheterization instruction 3. Please avoid strenuous activity. Avoid constipation. 4. Continue finasteride for now. We will stop it later Discharge Attestations Time Spent in Discharge Care*: greater than 30 min Specific Discharge Activities: educating patient, educating and/or supporting family/caregiver, documenting/other paperwork and evaluating patient/reviewing data Quality Metrics Clinical Quality Measures During this hospital stay, did patient experience: None Coding Level of Care Code Acute [facility] DC note Exam Detailed
--- NOTE | 2020-11-18 07:14 | PC.NURSE ---
Patient CBI catheter removed per physicians order. Tolerated well. Educated to use urinal when voiding and call out so that nurse can do voiding trial. Patient verbally acknowledged understanding.
[2020-11-18 08:00] VITALS: BP 153/84; PULSE 55; RESP 16; TEMP 36.4; O2SAT 97
[2020-11-18] MEDS: docusate sodium 100 mg Capsule PO (08:26)
[2020-11-18] MEDS: finasteride 5 mg Tablet PO (08:26)
[2020-11-18] MEDS: amlodipine 10 mg Tablet PO (08:26)
[2020-11-18] MEDS: lisinopril 5 mg Tablet PO (08:27)
[2020-11-18] MEDS: dextrose 5%-sod chloride 0.9% 1,000 ML 50 ML IV (08:27)
[2020-11-18 09:48] VITALS: PULSE 75; O2SAT 97
[2020-11-18 11:34] VITALS: BP 129/72; PULSE 57; RESP 18; TEMP 36.9; O2SAT 96
--- NOTE | 2020-11-18 13:17 | PC.NURSE ---
Urinary Catheter Urinary catheter insertion by Lizette NICHOLAS was monitored by this nurse. Sterile technique was maintained. Pt tolerated well. catheter used was a preston kit and 18 F coude. Documentation reviewed by this nurse as well.
--- NOTE | 2020-11-18 15:29 | PC.CHAP ---
Pastoral Care Encounter/Spiritual Assessment Type of Contact [] Declined administrative services officer visit [] Patient/Family/Request visit [] Outpatient visit [] Follow-up visit [] Physician referral [] Code/Alert [] Routine visit [] Staff referral [] Actively dying [] Patient sleeping [] Family support [] [] Out of room [] Palliative care [] [XX] Receiving care in room [] Pre-surgical visit [] Trauma [] Long length of stay [] ICU visit [] Other: Relational/Emotional Strength [] Patient feels connected with others/family/visitors/staff [] Distress [] Loneliness/isolation [] Abandonment Spirituality of Patient [] Person of Janae [] Attends Jain of their Janae [] Believes in Prayer [] Reads Bible or Buddhism materials [] There are Spiritual issues to be addressed Sack Cleaning Hand Interventions [] Prayer [] Active listening [] Non-anxious presence [] Spiritual/emotional support [] Crisis/trauma care [] Spiritual counseling [] Bereavement support [] Provided bereavement packet [] Provided Bible/devotional materials [] Provided toy/stuffed animal, coloring book to patient or family member [] Provided Communion [] Anointing/[place] [] Salvation [] Completed spiritual assessment [] Other: Impact on Illness or Injury [] Angry [] Fearful [] Anxious [] Often cries [] Exhaustion [] Unable to work [] Unable to attend pentecostal [] Unable to walk/stand [] Unable to read [] Unable to drive [] Unable to eat/drink [] Unable to sleep [] Unable to be with family [] Patient intubated [] Other: Summary Follow up needed Time spent with patient
[2020-11-18 16:00] VITALS: BP 128/62; PULSE 57; RESP 17; TEMP 36.6; O2SAT 94
== END 2020-11-18 17:35 | disposition home or self-care (01) ==
LOC: MEDSURG 16:14
PROVIDERS: Admitting Provider Urology; PCP Nurse Practitioner; Visit Provider Urology
PROC: 0TJB8ZZ Inspection of Bladder, Via Natural or Artificial Opening Endoscopic (ICD-10-PCS; CPT 52000; principal; 2020-11-17 12:00)
PROC: 0VT08ZZ Resection of Prostate, Via Natural or Artificial Opening Endoscopic (ICD-10-PCS; CPT 52601; 2020-11-17 12:00)
DX: N40.1 Benign prostatic hyperplasia with lower urinary tract symptoms (principal); N13.8 Other obstructive and reflux uropathy; Z86.16 Personal history of COVID-19; E78.5 Hyperlipidemia, unspecified; I10 Essential (primary) hypertension
CPT/HCPCS: 52601; 36415; 51702; 80048; 85025; 88305; G0378; J1100; J1956; J2405; J2704; J2710; J3010; J3490

== ENCOUNTER → 2020-11-29 14:43 | Outpatient (BNVA) | payer OTHER, SELFPAY | PROVIDERS: PCP Nurse Practitioner; Visit Provider Urology | DX: R30.0 Dysuria (principal) | CPT/HCPCS: 81003; 87077; 87086; 87184 ==

== ENCOUNTER → 2021-05-31 12:15 | Outpatient (BNVA) | payer OTHER, SELFPAY | PROVIDERS: PCP Nurse Practitioner; Visit Provider Internal Medicine | DX: R00.1 Bradycardia, unspecified (principal); I10 Essential (primary) hypertension; E78.5 Hyperlipidemia, unspecified | CPT/HCPCS: 99214 ==

== ENCOUNTER → 2021-08-01 09:17 | Outpatient (BNVA) | payer OTHER, SELFPAY | PROVIDERS: PCP Nurse Practitioner; Visit Provider Urology | DX: N40.1 Benign prostatic hyperplasia with lower urinary tract symptoms (principal); R97.20 Elevated prostate specific antigen [PSA]; N52.9 Male erectile dysfunction, unspecified | CPT/HCPCS: 51741; 51798; 81003; 99213 ==

== ENCOUNTER 2021-09-26 07:57 | Emergency (ER) | payer OTHER, MEDICARE, SELFPAY ==
[2021-09-26] VITALS (7 sets, daily range): BP systolic 131–160; BP diastolic 70–90; PULSE 46–60; RESP 15–19; TEMP 36.6; O2SAT 94–97; BMI 27.8
--- NOTE | 2021-09-26 07:58 | XRR_ITS ---
PROCEDURE INFORMATION: Exam: XR Chest Exam date and time: 09/26/2021 8:09 AM Age: 76 years old Clinical indication: Cough and dyspnea; Patient HX: Vertigo, fell and dizzy; Additional info: Dyspnea/cough TECHNIQUE: Imaging protocol: Radiologic exam of the chest. Views: 1 view. Total images: 4 COMPARISON: MR cervical spin wo con* [id number] 03/31/2020 8:16 AM FINDINGS: Lungs: Unremarkable. No consolidation. Pleural spaces: Unremarkable. No pleural effusion. No pneumothorax. Heart/Mediastinum: Unremarkable. No cardiomegaly. Bones/joints: Unremarkable. XR/XR chest 1V portable [id number] IMPRESSION: No acute findings.
--- NOTE | 2021-09-26 07:59 | ECG_ITS ---
[facility] Test Date: 2021-09-26 Pat Name: Abdullahi Black Department: Room: Gender: Male Lopper: : 1945 Requested By: Ke Masterson Order Number: [id number] Annie MD: Robinson Marin M.D. Measurements Intervals [place] Rate: 48 P: 38 WA: 159 QRS: 4 QRSD: 100 T: 57 QT: 458 QTc: 411 Interpretive Statements SINUS BRADYCARDIA Compared to ECG 09/29/2020 14:18:59 No significant changes Electronically Signed On 09-26-2021 16:52:19 CDT by Robinson Marin M.D. [id number]
--- NOTE | 2021-09-26 08:13 | CT_ITS ---
WS: [id number] CT HEAD TECHNIQUE: Noncontrast CT of the head obtained from the skullbase to the vertex. CLINICAL INFORMATION: dizziness COMPARISON: None. DLP: 989.[address] scans at [facility] use at least one of these dose optimization techniques: automated e xposure control; mA and/or kV adjustment per patient size (includes targeted exams where dose is matc hed to clinical indication); or iterative reconstruction. FINDINGS: No evidence of intracranial hemorrhage or mass effect. Ventricular system and basal cisterns are carlson nt. Mild small vessel changes with mild parenchymal volume loss. No extra-axial fluid collections. No evidence of mass or mass effect. Cavernous carotid calcification. Paranasal sinuses and mastoid air cells are well aerated. .Normal visualized soft tissues. CT/CT head wo con* [id number] IMPRESSION: 1. No evidence of intracranial hemorrhage or mass effect. 2. Mild small vessel changes with mild parenchymal volume loss. 3. No acute intracranial findings.
--- NOTE | 2021-09-26 08:20 | ED_ITS ---
HPI - Dizziness General: Chief Complaint: Dizziness Stated Complaint: htn Time Seen by Provider: 09/26/21 07:57 Source: patient Mode of arrival: EMS Limitations: no limitations History of Present Illness: HPI Narrative: 76-year-old male presents the emergency room with complaint of elevated blood pressure and dizziness. He notes the dizziness with postural changes and with any movement of his head. He said similar episodes in the past earlier his blood pressure was significantly elevated EMS gave him a single nitro tablet. Blood pressure improved to 150s over 80s. He is awake and alert he denies any chest pain no vision changes no focal localizing neurologic deficits. Symptoms began this morning. MD elicited complaint: dizziness Pertinent past history: BPPV Onset (ago): hour(s) Timing: sudden onset Severity: mild Description: room spinning Context: change in body position Exacerbating factors: movement/ambulation and change in body position Relieving factors: remaining still, rest and lying down Associated symptoms: Denies change in hearing, chest pain, chills, cough, diaphoresis, ear discharge, ear pressure, fevers/chills, headache(s), malaise, nausea, nasal congestion, palpitations, rash, short of breath, syncope, tinnitus, vomiting or weakness Associated neuro symptoms: Deny confusion, difficulty speaking, dysphagia, diplopia, extremity weakness, facial numbness, facial weakness, gait changes, numbness in extremities or visual changes Review of Systems Const: Denies: fever(s), chills, fatigue, malaise or diaphoresis ENMT: Denies: throat pain, ear discharge, change in hearing, tinnitus or nasal congestion Card: Denies: chest pain, palpitations or syncope Resp: Denies: dyspnea, productive cough or non-productive cough GI: Denies: abdominal pain, nausea, vomiting or dysphagia : Denies: flank pain, difficulty urinating, dysuria, urinary frequency or urinary urgency Skin/Breast: Denies: rash or pruritus Neuro: Reports: dizziness and vertigo; Denies: headache(s), numbness in extremities or confusion PFSH ED PFSH: Medical History BPH loc w urin obs/LUTS Benign pathology at [facility] October 2020 Elevated PSA Erectile dysfunction Hyperlipidemia Hypertension Family History Father , AT AGE 70 Heart attack Mother , AT AGE 68 Heart attack Social History Smoking and tobacco status: never smoked Alcohol intake: never Marital status: Current occupational status: retired History of recent travel: No Physical Exam Const: GENERAL APPEARANCE: cooperative and comfortable ORIENTATION/CONSCIOUSNESS: Yes awake, Yes oriented to person, Yes oriented to place and Yes oriented to time HENMT: COMMON NORMALS: normocephalic, atraumatic, hearing grossly normal bila terally, external ears normal, EAC's normal, TM's normal bilaterally, Normal nasal mucous membranes and turbinates present, moist oral mucous membranes and oropharynx normal HEAD & SCALP: normocephalic and atraumatic NOSE: Normal nasal mucous membranes and turbinates present EXTERNAL EAR: Yes external ears normal EXTERNAL AUDITORY CANAL: EAC's normal TYMPANIC MEMBRANE: TM's normal bilaterally Eye: COMMON NORMALS: Equal, round and reactive pupils present, EOMs intact bilaterally, conjunctivae normal and no scleral icterus CONJUNCTIVA: Yes conjunctivae normal PUPIL: Yes Equal, round and reactive pupils present Neck/C-Spine: COMMON NORMALS: no JVD Resp: COMMON NORMALS: normal respiratory effort, No retractions, No use of accessory muscles and clear to auscultation bilaterally AUSCULTATION: clear to auscultation bilaterally Cardio: COMMON NORMALS: no JVD, regular rate, regular rhythm and No murmurs present (Cardio) RATE: regular rate RHYTHM: regular rhythm GI: COMMON NORMALS: Soft to palpation and No hepatosplenomegaly present AUSCULTATION: Yes normoactive bowel sounds PALPATION: Yes Soft to palpation, No Tenderness to palpation present (GI), No Guarding due to palpation present (GI) and Yes No hepatosplenomegaly present Extremity: COMMON NORMALS: normal to inspection, capillary refill normal, no clubbing, cyanosis or edema, no calf tenderness and no pedal edema Neuro: SENSORIUM/ORIENTATION: Yes oriented to person, Yes oriented to place and Yes oriented to time Skin: COMMON NORMALS: no rashes or lesions noted GENERAL SKIN EXAM: no rashes or lesions noted Course Vital Signs: Vital signs: Vital Signs Temperature 97.9 F 09/26/21 08:01 Pulse Rate 52 L 09/26/21 11:17 Respiratory Rate 18 09/26/21 10:00 Blood Pressure 160/88 09/26/21 11:17 Pulse Oximetry 97 09/26/21 11:17 MDM - Dizziness Medical Decision Making Symptoms were reproducible while in the emergency room with rotation of his head with the medication particularly Ativan that resolved we will go ahead and disc harge him home have him follow-up with his primary care doctor return if he has further problems. Medical Records I reviewed the patient's medical records. Lab Data I reviewed the patient's lab results. : 09/26/21 08:07 09/26/21 08:07 Radiology Impressions Chest X-Ray 09/26/21 07:58 IMPRESSION: No acute findings. Head CT 09/26/21 08:13 IMPRESSION: 1. No evidence of intracranial hemorrhage or mass effect. 2. Mild small vessel changes with mild parenchymal volume loss. 3. No acute intracranial findings. Laboratory Results WBC 6.2 10^3/uL (4.0-10.0) 09/26/21 08:07 RBC 4.60 10^6/uL (4.1-5.3) 09/26/21 08:07 Hgb 14.0 g/dL (11.7-16.6) 09/26/21 08:07 Hct 40.2 % (42.0-52.0) L 09/26/21 08:07 MCV 87.4 fl (80-94) 09/26/21 08:07 MCH 30.4 pg (28.0-34.0) 09/26/21 08:07 MCHC 34.8 g/dL (30.0-36.0) 09/26/21 08:07 RDW 11.9 % (12.1-15.1) L 09/26/21 08:07 Plt Count 124 10^3/cmm (130-400) L 09/26/21 08:07 MPV 10.9 fL (7.4-10.4) H 09/26/21 08:07 Neut % (Auto) 62.7 % 09/26/21 08:07 Lymph % (Auto) 25.7 % 09/26/21 08:07 [place] % (Auto) 8.7 % 09/26/21 08:07 Eos % (Auto) 2.3 % 09/26/21 08:07 Baso % (Auto) 0.3 % 09/26/21 08:07 Neut # (Auto) 3.87 10^3/uL (1.8-7.7) 09/26/21 08:07 Lymph # (Auto) 1.6 10^3/uL (0.8-4.8) 09/26/21 08:07 [place] # (Auto) 0.5 10^3/uL (0.2-0.9) 09/26/21 08:07 Eos # (Auto) 0.1 10^3/uL (0.0-0.8) 09/26/21 08:07 Baso # (Auto) 0.0 10^3/uL (0.0-0.1) 09/26/21 08:07 Nucleated RBC % (auto) 0 % 09/26/21 08:07 Nucleated RBCs # 0.0 /100WBC 09/26/21 08:07 Sodium 139 mmol/L (136-145) 09/26/21 08:07 Potassium 4.0 mmol/L (3.5-5.1) 09/26/21 08:07 Chloride 104 mmol/L (98-107) 09/26/21 08:07 Carbon Dioxide 22 mmol/L (22-29) 09/26/21 08:07 Anion Gap 17.0 (5-19) 09/26/21 08:07 BUN 23 mg/dL (8-23) 09/26/21 08:07 Creatinine 1.0 mg/dL (0.7-1.2) 09/26/21 08:07 GFR Calculation Not Reportable 09/26/21 08:07 Glucose 121 mg/dL (65-115) H 09/26/21 08:07 Calculated Osmolality 293 mOsm/kg (285-295) 09/26/21 08:07 Calcium 9.0 mg/dL (8.5-10.5) 09/26/21 08:07 Magnesium 1.9 mg/dL (1.7-2.3) 09/26/21 08:07 Total Bilirubin 1.0 mg/dL (0.15-1.2) 09/26/21 08:07 AST 18 U/L (0-40) 09/26/21 08:07 ALT 18 U/L (0-41) 09/26/21 08:07 Alkaline Phosphatase 72 IU/L (40-130) 09/26/21 08:07 Troponin T Baseline 18 ng/L (0-15) H 09/26/21 08:07 Troponin T 120 Minute 17.16 ng/L (0-15) H 09/26/21 10:08 Delta Troponin T -0.84 ABS# (0-10) L 09/26/21 10:08 Total Protein 7.3 g/dL (6.6-8.7) 09/26/21 08:07 Albumin 4.3 g/dL (3.5-5.2) 09/26/21 08:07 Globulin 3.0 g/dL (1.3-4.6) 09/26/21 08:07 Discharge Plan Discharge Patient Disposition: Home Clinical Impression: Benign paroxysmal positional vertigo Condition: Stable Prescriptions: New Ativan 2 mg tablet 2 mg PO Q8H PRN (Reason: dizziness) Qty: 20 0RF No Action sildenafil 100 mg tablet 100 mg PO DAILY PRN (Reason: Edema) 0RF Rx Instructions: SEE PHARMACY COMMENT ramipril 5 mg capsule 5 mg PO DAILY Qty: 90 3RF Discharge Orders: Discharge ED (Routine); Ordered 09/26/21 Ordered By: Ke Wiggins Referrals: Viky Washington FNP [Primary Care Provider] - Discharge Diet: Usual diet Discharge Activity: Limit activity as instructed Patient Instructions: Opioid Safety Activity Restrictions/Additional Instructions: Use ativan for dizziness, Recheck with your primary care doctor if not improving. Coding Level of Care Code ED Truck Driver Heavy for Agustin Hankins Exam Comprehensive NIH stroke score NIHSS Level Of Consciousness - 1a: 0 Level Of Consciousness Questions - 1b: Both Correct Level Of Consciousness Commands - 1c: Both Correct Best Gaze - 2: Normal Visual Chung - 3: No Visual Loss Facial Palsy - 4: Normal Motor Arm Right - 5: No Drift Motor Arm Left - 5: No Drift Motor Leg Right - 6: No Drift Motor Leg Left - 6: No Drift Limb Ataxia - 7: Absent Sensory - 8: Normal Best Language - 9: No Aphasia Dysarthia - 10: Normal Extinction And Inattention - 11: 0 Score Total Score: 0
[2021-09-26] MEDS: LORazepam 0.5 mg Tablet PO (08:24)
[2021-09-26 08:45] LABS: Basophils % 0.3 %; Eosinophils # 0.1 10^3/uL (0.0-0.8); Eosinophils % 2.3 %; Hematocrit 40.2 % (42.0-52.0); Lymphocytes # 1.6 10^3/uL (0.8-4.8); Lymphocytes % 25.7 %; Mean Corpuscular HGB Conc 34.8 g/dL (30.0-36.0); Mean Corpuscular Hemoglobin 30.4 pg (28.0-34.0); Mean Corpuscular Volume 87.4 fl (80-94); Mean Platelet Volume 10.9 fL (7.4-10.4); Monocytes # 0.5 10^3/uL (0.2-0.9); Monocytes % 8.7 %; Neutrophils # 3.87 10^3/uL (1.8-7.7); Neutrophils % 62.7 %; Nucleated Red Blood Cells % 0 %; Platelet Count 124 10^3/cmm (130-400); Red Cell Distribution Width 11.9 % (12.1-15.1); White Blood Count 6.2 10^3/uL (4.0-10.0)
[2021-09-26 09:06] LABS: Alanine Aminotransferase 18 U/L (0-41); Albumin Level 4.3 g/dL (3.5-5.2); Alkaline Phosphatase 72 IU/L (40-130); Aspartate Amino Transferase 18 U/L (0-40); Blood Urea Nitrogen 23 mg/dL (8-23); Carbon Dioxide 22 mmol/L (22-29); Chloride 104 mmol/L (98-107); Glucose 121 mg/dL (65-115); Magnesium 1.9 mg/dL (1.7-2.3); Osmolality Calculated 293 mOsm/kg (285-295); Sodium 139 mmol/L (136-145); Total Protein 7.3 g/dL (6.6-8.7)
[2021-09-26 09:09] LABS: Troponin(5th) Baseline 18 ng/L (0-15)
--- NOTE | 2021-09-26 09:59 | ECG_ITS ---
[facility] Test Date: 2021-09-26 Pat Name: Abdullahi Black Department: Room: Gender: Male Zigzag Stitcher: : 1945 Requested By: Ke Masterson Order Number: [id number] Annie MD: Robinson Marin M.D. Measurements Intervals [place] Rate: 43 P: 26 DE: 167 QRS: -3 QRSD: 105 T: 47 QT: 452 QTc: 384 Interpretive Statements SINUS BRADYCARDIA MODERATE VOLTAGE CRITERIA FOR LVH, CONSIDER NORMAL VARIANT [MEETS CRITERIA IN ONE OF: R(aVL), S(V1), R(V5), R(V5/V6)+S(V1)] Compared to ECG 09/26/2021 08:07:49 No significant changes Electronically Signed On 09-26-2021 16:58:47 CDT by Robinson Marin M.D. [id number]
[2021-09-26] MEDS: LORazepam 1 mg Tablet PO (10:07)
[2021-09-26 11:20] LABS: Troponin 5 2HR 17.16 ng/L (0-15)
[2021-09-26 11:22] LABS: Troponin 5 2HR Delta -0.84 ABS# (0-10)
== END 2021-09-26 11:18 | disposition home or self-care (01) ==
PROVIDERS: Emergency Provider Family Medicine; PCP Nurse Practitioner
DX: H81.10 Benign paroxysmal vertigo, unspecified ear (principal); E78.5 Hyperlipidemia, unspecified; I10 Essential (primary) hypertension
CPT/HCPCS: 70450; 71045; 80053; 83735; 84484; 85025; 93005; 99285

== ENCOUNTER → 2021-09-29 11:21 | Outpatient (BNVA) | payer OTHER, SELFPAY | PROVIDERS: PCP Nurse Practitioner; Visit Provider Internal Medicine | DX: I10 Essential (primary) hypertension (principal); E78.5 Hyperlipidemia, unspecified; R00.1 Bradycardia, unspecified | CPT/HCPCS: 99214 ==

== ENCOUNTER → 2022-06-29 09:06 | Outpatient (BNVA) | payer OTHER, SELFPAY | PROVIDERS: PCP Nurse Practitioner; Visit Provider Internal Medicine | DX: I10 Essential (primary) hypertension (principal); E78.5 Hyperlipidemia, unspecified; N52.9 Male erectile dysfunction, unspecified; R00.1 Bradycardia, unspecified | CPT/HCPCS: 99214 ==

== ENCOUNTER → 2022-10-29 13:42 | Outpatient (BNVA) | payer OTHER, SELFPAY | PROVIDERS: PCP Nurse Practitioner; Visit Provider Podiatrist Foot & Ankle Surgery | DX: M20.21 Hallux rigidus, right foot; L84 Corns and callosities; M20.22 Hallux rigidus, left foot; M20.41 Other hammer toe(s) (acquired), right foot; M20.42 Other hammer toe(s) (acquired), left foot; L60.3 Nail dystrophy; M79.671 Pain in right foot | CPT/HCPCS: 73630; 93922; 99214 ==

== ENCOUNTER → 2022-12-05 07:33 | Outpatient (BNVA) | payer OTHER, SELFPAY | PROVIDERS: PCP Nurse Practitioner; Visit Provider Podiatrist Foot & Ankle Surgery | DX: L84 Corns and callosities; M20.41 Other hammer toe(s) (acquired), right foot; M20.42 Other hammer toe(s) (acquired), left foot; M20.21 Hallux rigidus, right foot; M20.22 Hallux rigidus, left foot | CPT/HCPCS: 99214 ==

== ENCOUNTER 2023-01-11 05:46 | Day surgery (SDC) | payer OTHER, SELFPAY ==
--- NOTE | 2023-01-11 | XR_ITS ---
WS: [id number] Right foot, C-arm fluoroscopy views of the toes, 01/11/2023 Clinical Data: Hammer toe 2nd right toe, or pic Comparison: Bilateral feet, 10/29/2022 Findings: There is an orthopedic pin extending into the right second toe reducing a hammertoe Impression: Right second toe hammertoe reduction
[2023-01-11 06:04] VITALS: BP 152/77; PULSE 52; RESP 18; TEMP 36.9; O2SAT 95
--- NOTE | 2023-01-11 06:19 | PM.OPSURHP ---
Providers/Chief Complaint Primary Care Provider: SANTHOSH Callejas Chief Complaint: M79.671, M20.42 History of Present Illness Abdullahi Black is a 77 year old male presenting to clinic for evaluation of right second toe pain, complains of right second toe curling downward causing increase discomfort along with rubbing with shoe gear.? Patient has been utilizing a band-aid to right second toe and has been wearing wide toed shoes.? Continues to have pain even though he is wearing accommodative shoes and padding/spacing he would like to discuss surgical correction.? Is accompanied by his . Review of Systems General: Reports: 10 or more systems reviewed and unremarkable except in HPI and below Const: Denies: fever(s) or chills Eyes: Denies: change in vision Card: Denies: chest pain or palpitations Resp: Denies: dyspnea or productive cough GI: Denies: abdominal pain, nausea or vomiting : Denies: flank pain Musc: Reports: extremity pain, joint pain, joint stiffness, limited range of motion and deformity Skin/Breast: Reports: skin tenderness; Denies: rash Neuro: Reports: difficulty walking; Denies: numbness in extremities, sensory changes or frequent falls Psych: Denies: suicidal ideation Kar[place]/Lymph: Denies: easy bruising Medications/Allergies Home Medications Medication Instructions Recorded Confirmed Last Taken Type sildenafil 100 mg tablet (Viagra) 100 mg PO DAILY PRN Edema 04/30/19 01/10/23 01/08/23 History ramipril 5 mg capsule 5 mg PO DAILY #90 caps 08/23/21 01/10/23 01/11/23 Rx albuterol sulfate 90 mcg/actuation 90 mcg inhalation 10/29/22 12/05/22 Unknown History aerosol inhaler Allergies Allergy/AdvReac Type Severity Reaction Status Date / Time pravastatin Allergy Unknown ADR-Gastrointestinal Verified 01/11/23 05:56 Upset PFSH PFSH: Medical History BPH loc w urin obs/LUTS Benign pathology at [facility] October 2020 Elevated PSA Erectile dysfunction Hyperlipidemia Hypertension Family History Father , AT AGE 70 Heart attack Mother , AT AGE 68 Heart attack Social History Smoking and tobacco/nicotine status: never used tobacco/nicotine Alcohol intake: never Substance/Drug Use: never Marital status: Current occupational status: retired Dietary Habits: Caffeine: Yes Vital Signs Vitals Signs: Last Vital Signs Temp 98.4 F 01/11/23 06:04 Pulse 52 L 01/11/23 06:04 Resp 18 01/11/23 06:04 BP 152/77 01/11/23 06:04 Pulse Ox 95 01/11/23 06:04 O2 Del Method Room Air 01/11/23 06:10 Physical Exam Narrative: EXAM NARRATIVE: GENERAL: Patient is alert and oriented ?3 and in no acute distress.? The following is a focused bilateral lower extremity exam. VASCULAR: Dorsalis pedis palpable bilaterally.? Posterior tibial arteries palpable.? Capillary refill time less than 3 seconds to the distal hallux bilaterally. Calf is supple and nontender proximally and distally.? Decreased pedal hair growth. NEUROLOGICAL: Protective sensation intact to light touch at the dorsal distal digits bilateral foot. DERMATOLOGICAL: Significantly dystrophic left and right great toenails greater than 1 cm thick.? Hyperkeratosis at the dorsal aspect of the right second toe at the proximal interphalangeal joint without underlying wound.? Lesser toenails 2 through 5 bilaterally are mildly dystrophic with thickening and discoloration. MUSCULOSKELETAL: Tenderness at right second hammertoe deformity.? Right second hammertoe is not reducible.? Hammertoe deformities of digits 2, 3, 4, 5 left and right foot.? Right second is more severe.? Bunion deformity bilateral with hallux valgus, bilateral hallux is not track bound.? Decreased dorsiflexion at the first metatarsal phalangeal joint bilaterally. CARDIOVASCULAR: S1, S2, normal rate, normal rhythm.? Dorsalis pedis and posterior tibial arteries palpable. LUNGS: Clear to auscltation, no use of acessory muscles, no crackles or wheezes. A&P Assessment and plan (1) Hammertoe, bilateral: Plan Patient wishing to undergo right second hammertoe correction.? Discussed arthrodesis of the proximal interphalangeal joint and flexor tendon transfer.? Patient would like to schedule this for January 11.? I reviewed at length with the patient, the risks, potential complications, benefits, alternatives, expectations, and typical outcomes associated with the surgery. The risks and potential complications were explained in detail, including but not limited to infection, wound dehiscence or soft tissue complications, bleeding and hematoma, chronic edema, neuritis or nerve damage producing numbness or chronic pain, CRPS, failure to relieve pain or worsening pain, thick / painful / unsightly scar, limited motion / stiffness, malposition, delayed union, malunion, or nonunion, fracture, reaction to implants, anesthetic complications, venous thromboembolism, and deformity recurrence.? I discussed the notion of no regrets with the patient as it pertains to complications and outcomes. The patient seemed to understand the nature of the proposed care and required convalescence. They asked appropriate questions, answered to their satisfaction. They are aware no guarantees can be made as to a satisfactory outcome and they understand there may be other possible unforeseen complications or outcomes not listed here that will be treated accordingly if they arise. There were no written or implied guarantees given to the patient. They gave informed consent to proceed. January 11, 2023 right second hammertoe correction.? 7 AM start time per patient request Local MAC Nadya, supine 30 minutes Mini C arm preferred, big C arm if mini is still out of commission. TPS.? 0.062 K wire Coding Level of Care Code Acute Code for Chg Fwd Diagnoses Hammertoe, bilateral M20.41; M20.42
--- NOTE | 2023-01-11 06:20 | P.HPUD_ITS ---
Surgery/Procedure H&P Update DATE OF PROCEDURE: January 11, 2023 DATE H&P PERFORMED: 01/11/23 H&P UPDATE INFORMATION: I have reviewed H&P completed within last 30 days, I have examined patient prior to procedure, No changes to prior documentation and H&P is in [facility] EMR on date indicated PREOP DIAGNOSIS: Right second hammertoe PLANNED PROCEDURE: Operation Date: 01/11/23 07:00 Proposed Procedures p Hammertoe Correction(Right) - Norris Elizalde DPM s ?Right second hammertoe correction and Flexor tendon transfer right foot CPT code 81293 and CPT? 91863, M79.671, M20.42(Right) - Norris Elizalde DPM
--- NOTE | 2023-01-11 06:21 | P.OP_ITS ---
Operative Report Date of procedure: January 11, 2023 Pre-op diagnosis: Right second hammertoe Post-op diagnosis: right second hammertoe Procedure done: 1) right second hammertoe correction. CPT code 69099 2) flexor tendon transfer right foot. CPT 02324 Implants: 4-0 Vicryl, 4-0 nylon, 0.062 K wire Surgeon: Norris Elizalde DPM Estimator Printing Plate Making: Dave Estimated blood loss: 2 Cc 17 IV fluids: 0 Urine output: 0 Complications: None Brief History: 77 year old male patient presenting to clinic for evaluation of right second toe pain, complains of right second toe curling downward causing increase discomfort along with rubbing with shoe gear.? Patient has been utilizing a band-aid to right second toe and has been wearing wide toed shoes.? Continues to have pain even though he is wearing accommodative shoes and padding/spacing he would like to discuss surgical correction.?Patient wishing to undergo right second hammertoe correction.? Discussed arthrodesis of the proximal interphalangeal joint and flexor tendon transfer.? Patient would like to schedule this for January 11.? I reviewed at length with the patient, the risks, potential complications, benefits, alternatives, expectations, and typical outcomes associated with the surgery. The risks and potential complications were explained in detail, including but not limited to infection, wound dehiscence or soft tissue complications, bleeding and hematoma, chronic edema, neuritis or nerve damage producing numbness or chronic pain, CRPS, failure to relieve pain or worsening pain, thick / painful / unsightly scar, limited motion / stiffness, malposition, delayed union, malunion, or nonunion, fracture, reaction to implants, anesthetic complications, venous thromboembolism, and deformity recurrence.? I discussed the notion of no regrets with the patient as it pertains to complications and outcomes. The patient seemed to understand the nature of the proposed care and required convalescence. They asked appropriate questions, answered to their satisfaction. They are aware no guarantees can be made as to a satisfactory outcome and they understand there may be other possible unforeseen complications or outcomes not listed here that will be treated accordingly if they arise. There were no written or implied guarantees given to the patient. They gave informed consent to proceed. Procedure: Under mild sedation the patient was brought to the operating room and remained on the gurney in supine position. A timeout was performed. Anesthesia was then administered by the anesthesia service. Local anesthesia injected by myself consisting of 10 cc of 0.5% Marcaine plain in a right second ray block fashion and an additional 10 cc of Exparel subcutaneously in a grid like fashion Proximal to the operative site of the right foot. Well-padded pneumatic tourniquet was applied to the right ankle. The right lower extremity was scrubbed, prepped and draped utilizing normal aseptic technique and the right foot was exanguinated with an Esmarch bandage and the tourniquet was inflated to 250 mmHg. Attention was directed to the dorsal aspect of the right second toe at the level of the proximal interphalangeal joint where a skin incision was performed directly over the proximal interphalangeal joint with a #15 blade. Dissection was carried down to the extensor tendon which was transected and the proximal interphalangeal joint was prepped for arthrodesis with an arthroplasty, the head of the proximal phalanx of the second toe was transected with a sagittal saw and passed per operative field followed by denuding articular surface through subchondral plate of the base of the intermediate phalanx of the right second toe. Flexor tendon was visualized through the joint fusion site being distracted and split longitudinally and carried about medially and laterally and secured with 4-0 nylon effectively transferring the flexor tendon from plantar to dorsal to maintain sagittal plane correction. The incision was irrigated with saline solution, a K wire 0.062 was integrated from the base of the intermediate phalanx at the distal aspect of the second toe and then retrograded to the base of the proximal phalanx not crossing the metatarsal phalangeal joint this was confirmed with C arm intraoperatively in the AP, oblique and lateral views. The proximal phalangeal joint arthrodesis site was compressed with excellent bony apposition and the K wire was then bent at 90 degrees and trimmed to length and covered with a Yen ball. The extensor tendon dorsally was reapproximated with 4-0 Vicryl. The skin was closed with 4-0 nylon. The incision was dressed with Adaptic, sterile 4 x 4's, Kerlix and Jhonny wrap followed by application of a cam boot. Tourniquet was deflated and a prompt hyperemic response was noted to the distal digits of the right foot. Patient tolerated the procedure and anesthesia well and was transferred to the PACU with vital signs stable and vascular status intact. Following a period of postoperative monitoring he will be discharged home is to remain limited weightbearing with a cam boot and weight his right foot while resting. Was given at home care instructions, scheduled follow-up and my cell phone number to contact with any postoperative questions or concerns.
--- NOTE | 2023-01-11 06:26 | ANES.PREANE2 ---
Pre-Anesthetic Assessment Height/Weight: Height 1.83 m Temp Pulse Resp BP Pulse Ox O2 Del Method 98.4 F 52 L 18 152/77 95 Room Air 01/11/23 06:04 01/11/23 06:04 01/11/23 06:04 01/11/23 06:04 01/11/23 06:04 01/11/23 06:10 Preop Diagnosis: Right second hammertoe Operation Date: 01/11/23 07:00 Proposed Procedures p Hammertoe Correction(Right) - Norris Elizalde DPM s ?Right second hammertoe correction and Flexor tendon transfer right foot CPT code 98296 and CPT? 98978, M79.671, M20.42(Right) - Norris Elizalde DPM Familial anesthetic complications: None Was Beta Latesha taken within 24 hours: N/A Was Clonidine taken within 24 hours: N/A Last intake: Intake Last Liquid Date 01/10/23 Last Liquid Time 17:00 Last Solid Date 01/10/23 Last Solid Time 17:00 Social No alcohol and No tobacco Exam alert, oriented x 3, clear to auscultation bilaterally and regular rate & rhythm Airway Mallampati: Class III Dentition: partials Pulmonary Chronic Obstructive Pulmonary Disease CV/HEM Arrythmia (bradycardia) and Hypertension Metabolic Hyperlipidemia Anesthetic Plan ASA status: 2 Anesthesia: MAC Risk of > 500 ml blood loss (7ml/kg in children): No Medications/Allergies Home Medications Medication Instructions Recorded Confirmed Last Taken Type sildenafil 100 mg tablet (Viagra) 100 mg PO DAILY PRN Edema 04/30/19 01/10/23 01/08/23 History ramipril 5 mg capsule 5 mg PO DAILY #90 caps 08/23/21 01/10/23 01/11/23 Rx albuterol sulfate 90 mcg/actuation 90 mcg inhalation 10/29/22 12/05/22 Unknown History aerosol inhaler hydrocodone 5 mg-acetaminophen 325 1 tab PO Q4H PRN pain 7 days #30 01/11/23 Unknown Rx mg tablet tabs Allergies Allergy/AdvReac Type Severity Reaction Status Date / Time pravastatin Allergy Unknown ADR-Gastrointestinal Verified 01/11/23 05:56 Upset [facility] Anesthesia Medical History BPH loc w urin obs/LUTS Benign pathology at [facility] October 2020 Elevated PSA Erectile dysfunction Hyperlipidemia Hypertension Family History Father , AT AGE 70 Heart attack Mother , AT AGE 68 Heart attack Social History Smoking and tobacco/nicotine status: never used tobacco/nicotine Alcohol intake: never Substance/Drug Use: never Marital status: Current occupational status: retired Data Anesthesia Cardiac Studies: Echocardiogram Ultrasound 05/31/20 Holter Monitor 04/20/20
[2023-01-11 06:37] VITALS: BMI 27.8
[2023-01-11] MEDS: sodium chloride 0.9% 1,000 ML 30 ML IV (06:40)
[2023-01-11] MEDS: ceFAZolin 2,000 MG in sodium chloride 0.9% (plus) 50 ML 100 MG IV (06:56)
[2023-01-11] MEDS: BUPivacaine liposome 13.3 mg/mL SDV 10 mL 133 MG INJECTION (07:17)
[2023-01-11] MEDS: BUPivacaine 0.5% INJ 10 mL INJECTION (07:18)
--- NOTE | 2023-01-11 07:32 | PM.OP ---
Operative Report Date of procedure: January 11, 2023 Pre-op diagnosis: Right second hammertoe Post-op diagnosis: Same Surgeon: Norris Elizalde DPM
[2023-01-11 07:34] VITALS: BP 108/60; PULSE 44; RESP 18; TEMP 36.1; O2SAT 96
[2023-01-11 07:35] VITALS: BP 117/59; PULSE 48; RESP 17; O2SAT 95
[2023-01-11 07:40] VITALS: BP 130/63; PULSE 53; RESP 18; O2SAT 96
[2023-01-11 07:47] VITALS: BP 128/67; PULSE 49; RESP 18; TEMP 36.1; O2SAT 96
--- NOTE | 2023-01-11 07:55 | ANE.PACU2 ---
Inpatient post-anesthesia follow up: Airway intact: Yes Vital signs: Temperature 97.0 F Pulse Rate 49 Respiratory Rate 18 Blood Pressure 128/67 Pulse Oximetry 96 Oxygen Delivery Me thod Room Air Oxygen Flow Rate Fraction of Inspir ed Oxygen Hydration adequate: Yes Nausea and vomiting: No Pain level: 1 Mental status: Baseline
== END 2023-01-11 09:00 | disposition home or self-care (01) ==
PROVIDERS: PCP Nurse Practitioner; Visit Provider Podiatrist Foot & Ankle Surgery
PROC: (CPT 28285; principal; 2023-01-11 07:00)
DX: M20.41 Other hammer toe(s) (acquired), right foot (principal); I10 Essential (primary) hypertension; E78.5 Hyperlipidemia, unspecified; J44.9 Chronic obstructive pulmonary disease, unspecified; N40.1 Benign prostatic hyperplasia with lower urinary tract symptoms; N13.8 Other obstructive and reflux uropathy
CPT/HCPCS: 27691; 28285; 73620; 76000; C1713; C9290; J0690; J2704; J3010; J3490; J7030

== ENCOUNTER → 2023-01-24 12:43 | Outpatient (BNVA) | payer OTHER, SELFPAY | PROVIDERS: PCP Nurse Practitioner; Visit Provider Podiatrist Foot & Ankle Surgery | DX: Z98.890 Other specified postprocedural states (principal); M20.41 Other hammer toe(s) (acquired), right foot; M20.42 Other hammer toe(s) (acquired), left foot | CPT/HCPCS: 73630; 99024 ==

== ENCOUNTER → 2023-02-07 13:08 | Outpatient (BNVA) | payer OTHER, SELFPAY | PROVIDERS: PCP Nurse Practitioner; Visit Provider Podiatrist Foot & Ankle Surgery | DX: Z98.890 Other specified postprocedural states (principal) | CPT/HCPCS: 73630; 99024 ==

== ENCOUNTER → 2023-02-21 12:37 | Outpatient (BNVA) | payer OTHER, SELFPAY | PROVIDERS: PCP Nurse Practitioner; Visit Provider Podiatrist Foot & Ankle Surgery | DX: Z98.890 Other specified postprocedural states (principal) | CPT/HCPCS: 73630; 99024 ==

== ENCOUNTER 2023-03-16 08:24 | Emergency (ER) | payer OTHER, SELFPAY ==
[2023-03-16 08:32] VITALS: BP 167/82; PULSE 49; RESP 18; TEMP 36.7; O2SAT 98; BMI 28.5
--- NOTE | 2023-03-16 08:46 | ED_ITS ---
HPI - Dizziness 2 General: Chief Complaint: Dizziness Stated Complaint: DIZZY Time Seen by Provider: 03/16/23 08:29 History of Present Illness: HPI Narrative: Patient presents to the ER with complaints of dizziness. Patient does have a history of vertigo. Patient states this episode started last night when he got up to urinate and has not went away. Patient tried meclizine last night but did not relieve the symptoms. He also states last night when he got up his blood pressure was about 230/130 but then he got up to go down by relaxation methods. Patient does have a history of this and has tried certain maneuvers to help with the vertigo but these did not help either. Review of Systems 2 General: Reports: 10 or more systems reviewed and unremarkable except in HPI and below PFSH ED 2 PFSH: Medical History Elevated PSA BPH loc w urin obs/LUTS Benign pathology at [facility] October 2020 Erectile dysfunction Hypertension Hyperlipidemia Family History Father , AT AGE 70 Heart attack Mother , AT AGE 68 Heart attack Social History Smoking and tobacco/nicotine status: never used tobacco/nicotine Alcohol intake: never Substance/Drug Use: never Marital status: Current occupational status: retired Physical Exam 2 Const: COMMON NORMALS: no acute distress, average body habitus, patient oriented x3, no limitations, healthy appearing, alert and well nourished HENMT: COMMON NORMALS: normocephalic, atraumatic, hearing grossly normal bilaterally, external ears normal, Normal external nose present, moist oral mucous membranes and oropharynx normal HEAD & SCALP: normocephalic and atraumatic NOSE: Normal external nose present EXTERNAL EAR: Yes external ears normal Eye: COMMON NORMALS: Equal, round and reactive pupils present, EOMs intact bilaterally, conjunctivae normal and no scleral icterus CONJUNCTIVA: Yes conjunctivae normal PUPIL: Yes Equal, round and reactive pupils present Neck/C-Spine: COMMON NORMALS: full ROM, no lymphadenopathy, supple, no meningeal signs, no JVD and Thyroid normal THYROID: Thyroid normal Chest: COMMONS NORMALS: normal inspection of the chest and normal palpation of entire chest wall Resp: COMMON NORMALS: normal respiratory effort, No retractions, No use of accessory muscles and clear to auscultation bilaterally AUSCULTATION: clear to auscultation bilaterally Cardio: COMMON NORMALS: no JVD, regular rate, regular rhythm, S1 normal heart sound present, S2 normal heart sound present, No gallops present (Cardio), No clicks present (Cardio), No murmurs present (Cardio) and No rub (Cardio) R ATE: regular rate RHYTHM: regular rhythm HEART SOUNDS: S1 normal heart sound present and S2 normal heart sound present Neuro: COMMON NORMALS: patient oriented x3 SENSORIUM/ORIENTATION: Yes alert MENINGEAL SIGNS: Yes no meningeal signs Course 2 Vital Signs: Vital signs: Vital Signs Temperature 98.1 F 03/16/23 08:32 Pulse Rate 48 L 03/16/23 09:06 Respiratory Rate 18 03/16/23 09:06 Blood Pressure 151/93 03/16/23 09:40 Pulse Oximetry 94 03/16/23 09:40 Oxygen Delivery Me thod Room Air 03/16/23 09:40 MDM - Dizziness Medical Decision Making Presents to the ER with vertigo worsening throughout the night. Patient lab work done was essentially unremarkable. Patient was given meclizine 50 mg which helped somewhat. 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 Differential Diagnosis Likely benign paroxysmal positional vertigo; Unlikely adverse reaction to drug, orthostatic hypotension, vertebral basilar insufficiency, cerebrovascular accident, acute vestibular neuronitis or transient cerebral ischemia Medical Records I reviewed the patient's medical records. Lab Data I reviewed the patient's lab results. 03/16/23 08:56 03/16/23 08:56 Laboratory Results WBC 4.79 10^3/uL (3.29-11.43) 03/16/23 08:56 RBC 4.44 10^6/uL (3.85-5.65) 03/16/23 08:56 Hgb 13.70 g/dL (11.27-16.99) 03/16/23 08:56 Hct 39.9 % (37-53) 03/16/23 08:56 MCV 89.9 fl (82-101) 03/16/23 08:56 MCH 30.9 pg (27-33) 03/16/23 08:56 MCHC 34.3 g/dL (30-55) 03/16/23 08:56 RDW 11.9 % (12.1-15.1) L 03/16/23 08:56 Plt Count 126 10^3/cmm (157-399) L 03/16/23 08:56 MPV 9.7 fL (7.4-10.4) 03/16/23 08:56 Neut % (Auto) 68.3 % 03/16/23 08:56 Lymph % (Auto) 20.9 % 03/16/23 08:56 [place] % (Auto) 9.4 % 03/16/23 08:56 Eos % (Auto) 0.8 % 03/16/23 08:56 Baso % (Auto) 0.2 % 03/16/23 08:56 Neut # (Auto) 3.27 10^3/uL (1.8-7.7) 03/16/23 08:56 Lymph # (Auto) 1.0 10^3/uL (0.8-4.8) 03/16/23 08:56 [place] # (Auto) 0.5 10^3/uL (0.2-0.9) 03/16/23 08:56 Eos # (Auto) 0.0 10^3/uL (0.0-0.8) 03/16/23 08:56 Baso # (Auto) 0.0 10^3/uL (0.0-0.1) 03/16/23 08:56 Nucleated RBC % (auto) 0 % 03/16/23 08:56 Nucleated RBCs # 0.0 /100WBC 03/16/23 08:56 Sodium 138 mmol/L (136-145) 03/16/23 08:56 Potassium 4.4 mmol/L (3.5-5.1) 03/16/23 08:56 Chloride 104 mmol/L (98-107) 03/16/23 08:56 Carbon Dioxide 26 mmol/L (22-29) 03/16/23 08:56 Anion Gap 12.4 (5-19) 03/16/23 08:56 BUN 19 mg/dL (8-23) 03/16/23 08:56 Creatinine 1.0 mg/dL (0.7-1.2) 03/16/23 08:56 GFR Calculation Not Reportable 03/16/23 08:56 Glucose 117 mg/dL (65-115) H 03/16/23 08:56 Calculated Osmolality 289 mOsm/kg (285-295) 03/16/23 08:56 Calcium 9.5 mg/dL (8.5-10.5) 03/16/23 08:56 Magnesium 2.1 mg/dL (1.7-2.3) 03/16/23 08:56 Total Bilirubin 0.9 mg/dL (0.15-1.2) 03/16/23 08:56 AST 21 U/L (0-40) 03/16/23 08:56 ALT 24 U/L (0-41) 03/16/23 08:56 Alkaline Phosphatase 81 U/L (40-130) 03/16/23 08:56 Total Protein 7.3 g/dL (6.6-8.7) 03/16/23 08:56 Albumin 4.2 g/dL (3.5-5.2) 03/16/23 08:56 Globulin 3.1 g/dL (1.3-4.6) 03/16/23 08:56 All radiology interpretation(s) finalized by discharge Discharge Plan Discharge Patient Disposition: Home Clinical Impression: Vertigo Condition: Stable Prescriptions: No Action sildenafil [Viagra] 100 mg tablet 100 mg PO DAILY PRN (Reason: Edema) Rx Instructions: SEE PHARMACY COMMENT albuterol sulfate 90 mcg/actuation HFA aerosol inhaler 90 mcg inhalation ramipril 5 mg capsule 5 mg PO DAILY Qty: 90 3RF doxycycline hyclate 100 mg capsule 100 mg PO BID 10 Days Qty: 20 0RF Discharge Orders: Discharge ED (Routine); Ordered 03/16/23 Ordered By: Edmond Lanier Referrals: Viky Washington FNP [Primary Care Provider] - 1 week Patient Instructions: Vertigo (ED) Activity Restrictions/Additional Instructions: Please take your meclizine at home as directed by the prescription. Please follow-up with your family practice physician within the next 7 days for further evaluation testing as needed. Coding Level of Care Code ED Promotion Producer for Agustin Hankins
[2023-03-16] MEDS: meclizine 25 mg tablet 50 MG PO (08:55)
[2023-03-16 09:06] VITALS: BP 134/70; PULSE 48; RESP 18; O2SAT 95
[2023-03-16 09:09] LABS: Basophils % 0.2 %; Eosinophils % 0.8 %; Hematocrit 39.9 % (37-53); Lymphocytes % 20.9 %; Mean Corpuscular HGB Conc 34.3 g/dL (30-55); Mean Corpuscular Hemoglobin 30.9 pg (27-33); Mean Corpuscular Volume 89.9 fl (82-101); Mean Platelet Volume 9.7 fL (7.4-10.4); Monocytes # 0.5 10^3/uL (0.2-0.9); Monocytes % 9.4 %; Neutrophils # 3.27 10^3/uL (1.8-7.7); Neutrophils % 68.3 %; Nucleated Red Blood Cells % 0 %; Platelet Count 126 10^3/cmm (157-399); Red Blood Count 4.44 10^6/uL (3.85-5.65); Red Cell Distribution Width 11.9 % (12.1-15.1); White Blood Count 4.79 10^3/uL (3.29-11.43)
[2023-03-16 09:30] LABS: Alanine Aminotransferase 24 U/L (0-41); Albumin Level 4.2 g/dL (3.5-5.2); Alkaline Phosphatase 81 U/L (40-130); Anion Gap 12.4 (5-19); Aspartate Amino Transferase 21 U/L (0-40); Blood Urea Nitrogen 19 mg/dL (8-23); Calcium 9.5 mg/dL (8.5-10.5); Carbon Dioxide 26 mmol/L (22-29); Chloride 104 mmol/L (98-107); Globulin 3.1 g/dL (1.3-4.6); Glucose 117 mg/dL (65-115); Magnesium 2.1 mg/dL (1.7-2.3); Osmolality Calculated 289 mOsm/kg (285-295); Potassium 4.4 mmol/L (3.5-5.1); Sodium 138 mmol/L (136-145); Total Bilirubin 0.9 mg/dL (0.15-1.2); Total Protein 7.3 g/dL (6.6-8.7)
[2023-03-16 09:40] VITALS: BP 151/93; O2SAT 94
[2023-03-16 10:15] VITALS: BP 146/77; PULSE 56; O2SAT 97
== END 2023-03-16 10:19 | disposition home or self-care (01) ==
PROVIDERS: Emergency Provider Emergency Medicine; PCP Nurse Practitioner
DX: R42 Dizziness and giddiness (principal); I10 Essential (primary) hypertension; E78.5 Hyperlipidemia, unspecified
CPT/HCPCS: 36415; 80053; 83735; 85025; 99283; J8597

== ENCOUNTER → 2023-04-18 12:49 | Outpatient (BNVA) | payer OTHER, SELFPAY | PROVIDERS: PCP Nurse Practitioner; Visit Provider Podiatrist Foot & Ankle Surgery | DX: Z98.890 Other specified postprocedural states (principal); Z87.39 Personal history of other diseases of the musculoskeletal system and connective tissue | CPT/HCPCS: 73630; 99024; 99213 ==

== ENCOUNTER 2023-05-22 11:56 | Emergency (ER) | payer OTHER, SELFPAY ==
[2023-05-22 12:13] VITALS: BP 163/75; PULSE 63; TEMP 36.4; O2SAT 96
[2023-05-22 12:47] LABS: Basophils % 0.4 %; Eosinophils % 0.7 %; Lymphocytes # 1.5 10^3/uL (0.8-4.8); Lymphocytes % 26.8 %; Mean Corpuscular HGB Conc 33.8 g/dL (30-55); Mean Corpuscular Hemoglobin 30.3 pg (27-33); Mean Corpuscular Volume 89.7 fl (82-101); Mean Platelet Volume 9.7 fL (7.4-10.4); Monocytes # 0.4 10^3/uL (0.2-0.9); Monocytes % 7.8 %; Neutrophils % 63.9 %; Nucleated Red Blood Cells % 0 %; Platelet Count 145 10^3/cmm (157-399); Red Blood Count 4.68 10^6/uL (3.85-5.65); Red Cell Distribution Width 11.9 % (12.1-15.1); White Blood Count 5.63 10^3/uL (3.29-11.43)
[2023-05-22 13:18] LABS: Alanine Aminotransferase 26 U/L (0-41); Albumin Level 4.5 g/dL (3.5-5.2); Alkaline Phosphatase 81 U/L (40-130); Anion Gap 15.3 (5-19); Aspartate Amino Transferase 25 U/L (0-40); Blood Urea Nitrogen 15 mg/dL (8-23); Calcium 9.3 mg/dL (8.5-10.5); Carbon Dioxide 25 mmol/L (22-29); Chloride 102 mmol/L (98-107); Globulin 3.2 g/dL (1.3-4.6); Glucose 88 mg/dL (65-115); Lipase 34 U/L (13-60); Osmolality Calculated 286 mOsm/kg (285-295); Potassium 4.3 mmol/L (3.5-5.1); Sodium 138 mmol/L (136-145); Total Bilirubin 1.1 mg/dL (0.15-1.2); Total Protein 7.7 g/dL (6.6-8.7)
--- NOTE | 2023-05-22 14:56 | ED_ITS ---
HPI - Abdominal Pain 2 General: Chief Complaint: Abdominal Pain Stated Complaint: abd pain Time Seen by Provider: 05/22/23 14:56 History of Present Illness: 77-year-old male patient referred from [facility] for concerns of left lower quadrant abdominal pain. Patient has been on doxycycline for the last 10 days for the complaints of pain and probable diverticulitis. Patient appears nontoxic. Patient is alert and oriented. Patient responds appropriate to questions. Review of Systems 2 General: Reports: 10 or more systems reviewed and unremarkable except in HPI and below PFSH ED 2 PFSH: Medical History Elevated PSA BPH loc w urin obs/LUTS Benign pathology at [facility] October 2020 Erectile dysfunction Hypertension Hyperlipidemia Family History Father , AT AGE 70 Heart attack Mother , AT AGE 68 Heart attack Social History Smoking and tobacco/nicotine status: never used tobacco/nicotine Alcohol intake: never Substance/Drug Use: never Marital status: Current occupational status: retired Physical Exam 2 Const: COMMON NORMALS: alert HENMT: COMMON NORMALS: normocephalic HEAD & SCALP: normocephalic Neck/C-Spine: COMMON NORMALS: full ROM Resp: COMMON NORMALS: normal respiratory effort Cardio: COMMON NORMALS: regular rate RATE: regular rate GI: AUSCULTATION: Yes normoactive bowel sounds PALPATION: Yes Tenderness to palpation present (GI) Details: LLQ Extremity: COMMON NORMALS: no pedal edema Neuro: SENSORIUM/ORIENTATION: Yes alert Skin: COMMON NORMALS: turgor normal GENERAL SKIN EXAM: turgor normal Course 2 Vital Signs: Vital signs: Vital Signs Temperature 97.6 F 05/22/23 12:13 Pulse Rate 60 05/22/23 16:21 Respiratory Rate 18 05/22/23 16:21 Blood Pressure 163/86 05/22/23 16:21 Pulse Oximetry 96 05/22/23 16:21 Oxygen Delivery Me thod Room Air 05/22/23 16:21 MDM - Abdominal Pain Medical Decision Making 77-year-old male patient comes in for left lower quadrant abdominal pain that has been persistent for 2 weeks. On exam abdomen soft with tenderness in left lower quadrant. Bowel sounds are present. Skin is warm and dry. Vital signs normal except for some mild elevation in blood pressure at 163/75. Differential diagnosis includes but not limited to diverticulitis, renal calculi, abscess, bowel obstruction, urinary tract infection, muscle strain. CBC CMP was unremarkable. CT of the abdomen pelvis was performed and noted diverticulitis without signs of abscess or perforation. Reviewed exam with patient recommended change of antibiotics from doxycycline to Cipro and metronidazole. Patient was also given a short course of hydrocodone for pain. Encourage fluids and rest and follow-up with primary care or return to ER for worsening symptoms. Lab Data 05/22/23 12:35 05/22/23 12:35 Labs/Radiology: Laboratory Results WBC 5.63 10^3/uL (3.29-11.43) 05/22/23 12:35 RBC 4.68 10^6/uL (3.85-5.65) 05/22/23 12:35 Hgb 14.20 g/dL (11.27-16.99) 05/22/23 12:35 Hct 42.0 % (37-53) 05/22/23 12:35 MCV 89.7 fl (82-101) 05/22/23 12:35 MCH 30.3 pg (27-33) 05/22/23 12:35 MCHC 33.8 g/dL (30-55) 05/22/23 12:35 RDW 11.9 % (12.1-15.1) L 05/22/23 12:35 Plt Count 145 10^3/cmm (157-399) L 05/22/23 12:35 MPV 9.7 fL (7.4-10.4) 05/22/23 12:35 Neut % (Auto) 63.9 % 05/22/23 12:35 Lymph % (Auto) 26.8 % 05/22/23 12:35 [place] % (Auto) 7.8 % 05/22/23 12:35 Eos % (Auto) 0.7 % 05/22/23 12:35 Baso % (Auto) 0.4 % 05/22/23 12:35 Neut # (Auto) 3.60 10^3/uL (1.8-7.7) 05/22/23 12:35 Lymph # (Auto) 1.5 10^3/uL (0.8-4.8) 05/22/23 12:35 [place] # (Auto) 0.4 10^3/uL (0.2-0.9) 05/22/23 12:35 Eos # (Auto) 0.0 10^3/uL (0.0-0.8) 05/22/23 12:35 Baso # (Auto) 0.0 10^3/uL (0.0-0.1) 05/22/23 12:35 Nucleated RBC % (auto) 0 % 05/22/23 12:35 Nucleated RBCs # 0.0 /100WBC 05/22/23 12:35 Sodium 138 mmol/L (136-145) 05/22/23 12:35 Potassium 4.3 mmol/L (3.5-5.1) 05/22/23 12:35 Chloride 102 mmol/L (98-107) 05/22/23 12:35 Carbon Dioxide 25 mmol/L (22-29) 05/22/23 12:35 Anion Gap 15.3 (5-19) 05/22/23 12:35 BUN 15 mg/dL (8-23) 05/22/23 12:35 Creatinine 1.0 mg/dL (0.7-1.2) 05/22/23 12:35 GFR Calculation Not Reportable 05/22/23 12:35 Glucose 88 mg/dL (65-115) 05/22/23 12:35 Calculated Osmolality 286 mOsm/kg (285-295) 05/22/23 12:35 Calcium 9.3 mg/dL (8.5-10.5) 05/22/23 12:35 Total Bilirubin 1.1 mg/dL (0.15-1.2) 05/22/23 12:35 AST 25 U/L (0-40) 05/22/23 12:35 ALT 26 U/L (0-41) 05/22/23 12:35 Alkaline Phosphatase 81 U/L (40-130) 05/22/23 12:35 Total Protein 7.7 g/dL (6.6-8.7) 05/22/23 12:35 Albumin 4.5 g/dL (3.5-5.2) 05/22/23 12:35 Globulin 3.2 g/dL (1.3-4.6) 05/22/23 12:35 Lipase 34 U/L (13-60) 05/22/23 12:35 All radiology interpretation(s) finalized by discharge Discharge Plan Discharge Patient Disposition: Home Clinical Impression: Diverticulitis Condition: Stable Prescriptions: New ciprofloxacin HCl 500 mg tablet 500 mg PO BID Qty: 14 0RF metronidazole 500 mg tablet 500 mg PO TID 7 Days Qty: 21 0RF hydrocodone-acetaminophen 5-325 mg tablet 1 tab PO Q6H PRN (Reason: pain (scale score 7-10)) Qty: 10 0RF No Action sildenafil [Viagra] 100 mg tablet 100 mg PO DAILY PRN (Reason: Edema) Rx Instructions: SEE PHARMACY COMMENT amlodipine 5 mg tablet 5 mg PO DAILY Qty: 90 3RF ramipril 5 mg capsule 5 mg PO DAILY Qty: 90 3RF doxycycline hyclate 100 mg capsule 100 mg PO BID 10 Days Qty: 20 0RF Discharge Orders: Discharge ED (Routine); Ordered 05/22/23 Ordered By: Dax Cheung Referrals: Viky Washington FNP [Primary Care Provider] - Discharge Diet: Usual diet Discharge Activity: Increase activity as tolerated Patient Instructions: Diverticulitis (ED) Activity Restrictions/Additional Instructions: Home and rest. Activity as tolerated. Use acetaminophen ibuprofen for pain and discomfort. Use hydrocodone for severe pain. Take antibiotics as directed. Coding Level of Care Code ED Emery Wheel Worker for Agustin Hankins
--- NOTE | 2023-05-22 14:57 | CT_ITS ---
WS: [id number] CT ABDOMEN AND PELVIS WITH CONTRAST HISTORY: abd pain TECHNIQUE: Imaging performed of the abdomen and pelvis with IV contrast. Single phase imaging of the abdomen. Coronal and sagittal reformats are submitted. All CT scans at [facility] use at [address] one of these dose optimization techniques: automated exposure control; mA and/or kV adjustment per patient size (includes targeted exams where dose is matched to clinical indication); or iterative re construction. IV CONTRAST: Omnipaque 350; 100 mL IV. Oral contrast: Yes. DLP: 786.66 mGy.cm COMPARISON: None available. Lower thorax: Lung bases are clear. Heart is normal size. No hiatal hernia. Liver/biliary system: Normal size with no intrahepatic dilatation. Gallbladder: Cholelithiasis. No evidence for acute cholecystitis. Pancreas: Normal size pancreas and pancreatic duct. No adjacent inflammation. Spleen: Normal size spleen. No mass or infarct. Adrenal glands: Normal RIGHT adrenal gland. There is a tiny 8 mm LEFT adrenal nodule. This is probabl y an adenoma but too small to characterize. Right kidney: Normal. Left kidney: Cortical cyst 1.1 cm. No hydronephrosis. Aorta: Normal. Lymphadenopathy: None. Free fluid: None. GI tract: Normally distended stomach. No small bowel obstruction. Small lipoma measures 6 mm in the p roximal small bowel. No obstruction. Mild fecal retention and constipation. Prior appendectomy. Numer ous distal colonic diverticula. Increasing diverticula in the sigmoid colon. There is mild pericoloni c inflammation with no abscess. Abdominal wall: Ventral abdominal wall hernia contains fat only. Pelvis: Mild heterogeneity in the prostate gland. Negative urinary bladder. No adenopathy. Bones: Unremarkable. IMPRESSION: 1. Mild acute sigmoid diverticulitis. No abscess or free air. 2. Innumerable diverticula distal colon. No obstruction. 3. Prior appendectomy. 4. LEFT renal cyst.
[2023-05-22] MEDS: iohexol 350 mg/mL 500 mL Btl (per mL) IV (15:16)
[2023-05-22 15:50] VITALS: BP 172/89; RESP 16; O2SAT 96
--- NOTE | 2023-05-22 15:51 | PC.NURSE ---
inquired about UA, pt unable at this time.
[2023-05-22 16:21] VITALS: BP 163/86; PULSE 60; RESP 18; O2SAT 96
[2023-05-22] MEDS: ciprofloxacin 500 mg Tablet PO (16:21)
[2023-05-22] MEDS: metroNIDAZOLE 500 MG Tablet PO (16:21)
== END 2023-05-22 16:29 | disposition home or self-care (01) ==
PROVIDERS: Emergency Medicine; Emergency Provider Nurse Practitioner Family; PCP Nurse Practitioner
DX: K57.92 Diverticulitis of intestine, part unspecified, without perforation or abscess without bleeding (principal); I10 Essential (primary) hypertension; E78.5 Hyperlipidemia, unspecified
CPT/HCPCS: 36415; 74177; 80053; 83690; 85025; 99285; Q9967

== ENCOUNTER → 2023-06-21 10:55 | Outpatient (BNVA) | payer OTHER, SELFPAY | PROVIDERS: PCP Nurse Practitioner; Visit Provider Nurse Practitioner Family | DX: I10 Essential (primary) hypertension (principal) | CPT/HCPCS: 99213 ==

== ENCOUNTER 2023-06-24 20:00 | Outpatient (CLI) | payer OTHER, SELFPAY | END 2023-06-24 20:01 | disposition home or self-care (01) | PROVIDERS: PCP Nurse Practitioner; Visit Provider Nurse Practitioner | DX: G47.33 Obstructive sleep apnea (adult) (pediatric) (principal) | CPT/HCPCS: 95810 ==

== ENCOUNTER → 2023-07-23 10:30 | Outpatient (BNVA) | payer OTHER, SELFPAY | PROVIDERS: PCP Nurse Practitioner; Visit Provider Podiatrist Foot & Ankle Surgery | DX: L60.8 Other nail disorders (principal); M20.41 Other hammer toe(s) (acquired), right foot; M20.42 Other hammer toe(s) (acquired), left foot; M21.611 Bunion of right foot; M21.612 Bunion of left foot; M19.071 Primary osteoarthritis, right ankle and foot; M19.072 Primary osteoarthritis, left ankle and foot; I73.9 Peripheral vascular disease, unspecified; M21.41 Flat foot [pes planus] (acquired), right foot; M21.42 Flat foot [pes planus] (acquired), left foot; L60.3 Nail dystrophy | CPT/HCPCS: 11721; 99213 ==

== ENCOUNTER → 2023-10-22 11:17 | Outpatient (BNVA) | payer OTHER, SELFPAY | PROVIDERS: PCP Nurse Practitioner; Visit Provider Podiatrist Foot & Ankle Surgery | DX: I73.9 Peripheral vascular disease, unspecified (principal); M21.41 Flat foot [pes planus] (acquired), right foot; M21.42 Flat foot [pes planus] (acquired), left foot; L60.3 Nail dystrophy | CPT/HCPCS: 11721 ==

== ENCOUNTER 2023-12-06 13:32 | Outpatient (CLI) | payer OTHER, SELFPAY ==
--- NOTE | 2023-12-06 14:00 | USCV_ITS ---
Abdullahi Black Age: 78 Gender: M : 1945 Exam Date: 12/06/2023 13:47 Ordering Phys: Jerilyn Newsome Technologist: CT Exam Location: [facility] [place] Indication: HISTORY: PROCEDURES: FINDINGS: The veins were found to be easily compressible with spontaneous blood flow. Non pulsatile flow pattern. The proximal, mid, distal, below-knee segments of the greater saphenous vein on the right side were found to have reflexes of 1.7, 3.4, 2.4 and 3 seconds respectively. These venous segments were measuring anywhere from 0.3 to 0.4 cm in diameter. The proximal and the mid segment severe 1.3 and 1 cm deep from the surface. The distal segment at the below-knee segments were less than 1 cm deep from the surface. The small saphenous venous segments were found to have no significant reflux No severe venous reflux were noted in the other veins veins on the left side. CONCLUSIONS 1. Significant venous reflux of greater than 500 ms were noted at the proximal, mid, distal and below-knee segments of the great saphenous vein on the right side. This venous segments were reviewed 0.3 to 0.4 cm in diameter. The proximal and the mid segment were found to have be at a 1 cm or more deep from the surface. The distal and below-knee segments were found to be less than 1 cm deep from the surface 2. On the left side, no significant venous reflux were noted. The venous segments were found to be easily compressible with spontaneous blood flow. No similar previous studies are available for comparison Dr Jamaal Jose MD [facility] (Electronically Signed) Final Date: 08 December 2023 19:49 S
== END 2023-12-06 13:33 | disposition home or self-care (01) ==
LOC: RAD 13:33
PROVIDERS: PCP Nurse Practitioner; Visit Provider Nurse Practitioner Family
DX: I73.9 Peripheral vascular disease, unspecified (principal); R60.0 Localized edema
CPT/HCPCS: 93970

== ENCOUNTER 2023-12-10 09:25 | Outpatient (CLI) | payer OTHER, SELFPAY ==
--- NOTE | 2023-12-10 09:32 | USCV_ITS ---
Sofia Abdullahi Age: 78 Gender: M : 1945 Exam Date: 12/10/2023 09:27 Ordering Phys: Viky Washington Technologist: Exam Location: [facility] – [place]_ Indication: pad RIGHT LEFT Brachial 122.00 mmHg Brachial 125.00 mmHg Pressure (mmHg) Waveform Pressure (mmHg) Waveform 230.00 DIE TRIMMER 151.00 230.00 DPA 230.00 Ankle/Brachial Index 1.20 72.00 Pre-Exercise Toe Pressure 140.00 0.58 Pre-Exercise Toe/Brachial Index 1.10 FINDINGS Noncompressible ankle vessels in the right side Resting ANJELICA 1.2 on the left side Resting TBI of 0.58 on the right and 1.1 on the left CONCLUSIONS 1. Noncompressible ankle vessels-on the right side with a resting TBI 0.58 2. Resting ANJELICA of 1.2 and resting TBI of 1.1 on the left side, suggesting no significant arterial obstruction Dr Jamaal Jose MD [facility] (Electronically Signed) Final Date: 10 December 2023 13:56 S
== END 2023-12-10 09:26 | disposition home or self-care (01) ==
PROVIDERS: PCP Nurse Practitioner; Visit Provider Nurse Practitioner
DX: M79.605 Pain in left leg (principal); M79.604 Pain in right leg
CPT/HCPCS: 93922

== ENCOUNTER → 2023-12-24 12:23 | Outpatient (BNVA) | payer OTHER, SELFPAY | PROVIDERS: PCP Nurse Practitioner; Visit Provider Internal Medicine | DX: I10 Essential (primary) hypertension (principal); E78.5 Hyperlipidemia, unspecified; N52.9 Male erectile dysfunction, unspecified; R00.1 Bradycardia, unspecified | CPT/HCPCS: 99214 ==

== ENCOUNTER 2024-01-08 10:37 | Emergency (ER) | payer OTHER, MEDICARE, SELFPAY ==
[2024-01-08 10:50] VITALS: BP 168/83; PULSE 66; RESP 15; TEMP 36.5; O2SAT 98; BMI 27.1
--- NOTE | 2024-01-08 11:52 | CT_ITS ---
WS: [id number] CT HEAD NONCONTRAST HISTORY: purvis TECHNIQUE: Contiguous axial imaging performed through the brain. Bone and soft tissue windows. Sagitt al and coronal reformats reviewed. All CT scans at [facility] use at least one of these dose optimization techniques: automated exposure control; mA and/or kV adjustment per patient size (includ es targeted exams where dose is matched to clinical indication); or iterative reconstruction. DLP: 1137.28 mGy.cm COMPARISON: None available. No acute intracranial hemorrhage, midline shift or mass effect. Mild atrophy and mild small vessel ischemic disease. No prior infarct. Ventricles: Normal size with no hydrocephalus. Paranasal sinuses: As visualized are clear. Mastoid air cells: Well pneumatized. Calvarium and scalp: Skull is intact with no soft tissue edema or swelling. CT/CT head wo con* [id number] IMPRESSION: 1. No acute intracranial hemorrhage or edema. 2. Mild atrophy and mild small vessel disease.
--- NOTE | 2024-01-08 12:11 | ED_ITS ---
HPI - Headache 2 General: Chief Complaint: Headache Stated Complaint: sharp pain in head Time Seen by Provider: 01/08/24 12:05 History of Present Illness: 78-year-old male presents emergency room complaining of occipital headache. No recent trauma. Describes the pain as being at the occipital area radiating up around to the parietal area at times it comes and goes he has noticed been very severe at times no history of trauma. No difficulty speech balance gait. Is been going on and off for several weeks. He has tried chiropractor with no relief. Associated symptoms: Deny chest pain, fever(s) or rash Related Data Home Medications Medication Instructions Recorded Confirmed ciprofloxacin HCl 500 mg tablet 500 mg PO BID 01/08/24 01/08/24 metronidazole 500 mg tablet 500 mg PO TID 01/08/24 01/08/24 Previous Rx's Medication Instructions Recorded orthopedic shoe package and #1 ea 07/23/23 orthotics ramipril 5 mg capsule 7.5 mg (1.5 x 5 mg) PO DAILY #120 09/16/23 caps amlodipine 10 mg tablet 10 mg PO DAILY #90 tabs 12/24/23 Allergies Allergy/AdvReac Type Severity Reaction Status Date / Time pravastatin Allergy Unknown ADR-Gastrointestinal Verified 12/24/23 12:44 Upset lisinopril Allergy Unknown Unknown Uncoded 12/24/23 12:44 Review of Systems 2 Const: Denies: fever(s) or chills Card: Denies: chest pain Resp: Denies: dyspnea GI: Denies: abdominal pain : Denies: dysuria, urinary frequency or urinary urgency Musc: Denies: neck pain or back pain Skin/Breast: Denies: rash PFSH ED 2 PFSH: Medical History Elevated PSA BPH loc w urin obs/LUTS Benign pathology at [facility] October 2020 Erectile dysfunction Hypertension Hyperlipidemia Family History Father , AT AGE 70 Heart attack Mother , AT AGE 68 Heart attack Social History Smoking and tobacco/nicotine status: never used tobacco/nicotine Alcohol intake: never Substance/Drug Use: never Marital status: Current occupational status: retired Physical Exam 2 Const: COMMON NORMALS: no acute distress GENERAL APPEARANCE: cooperative and comfortable ORIENTATION/CONSCIOUSNESS: Yes awake, Yes oriented to person, Yes oriented to place and Yes oriented to time HENMT: COMMON NORMALS: normocephalic, atraumatic and hearing grossly normal bilaterally HEAD & SCALP: normocephalic and atraumatic Resp: COMMON NORMALS: normal respiratory effort, No retractions, No use of accessory muscles and clear to auscultation bilaterally AUSCULTATION: clear to auscultation bilaterally Cardio: COMMON NORMALS: regular rate, regular rhythm and No murmurs present (Cardio) RATE: regular rate RHYTHM: regular rhythm GI: COMMON NORMALS: Soft to palpation and No hepatosplenomegaly present A USCULTATION: Yes normoactive bowel sounds PALPATION: Yes Soft to palpation, No Tenderness to palpation present (GI), No Guarding due to palpation present (GI) and Yes No hepatosplenomegaly present Extremity: COMMON NORMALS: normal to inspection, capillary refill normal, no clubbing, cyanosis or edema, no calf tenderness and no pedal edema Neuro: SENSORIUM/ORIENTATION: Yes oriented to person, Yes oriented to place and Yes oriented to time Skin: COMMON NORMALS: no rashes or lesions noted GENERAL SKIN EXAM: no rashes or lesions noted Course 2 Vital Signs: Vital signs: Vital Signs Temperature 97.7 F 01/08/24 10:50 Pulse Rate 56 L 01/08/24 13:54 Respiratory Rate 15 01/08/24 10:50 Blood Pressure 145/82 01/08/24 13:54 Pulse Oximetry 96 01/08/24 13:54 Oxygen Delivery Me thod Room Air 01/08/24 13:30 MDM - Headache Medical Decision Making Patient has no symptoms at this time CT head negative. No focal neurologic deficits are noted. Patient be discharged home we will set him up for follow-up with his neurology. He believes this point patient probably has occipital neuralgia may require injections. He is asymptomatic at this time. Medical Records I reviewed the patient's medical records. Lab Data I reviewed the patient's lab results. 01/08/24 12:52 01/08/24 12:[address] 01/08/24 11:52 IMPRESSION: 1. No acute intracranial hemorrhage or edema. 2. Mild atrophy and mild small vessel disease. Laboratory Results WBC 5.95 10^3/uL (3.29-11.43) 01/08/24 12:52 RBC 5.15 10^6/uL (3.85-5.65) 01/08/24 12:52 Hgb 15.40 g/dL (11.27-16.99) 01/08/24 12:52 Hct 45.6 % (37-53) 01/08/24 12:52 MCV 88.5 fl (82-101) 01/08/24 12:52 MCH 29.9 pg (27-33) 01/08/24 12:52 MCHC 33.8 g/dL (30-55) 01/08/24 12:52 RDW 11.9 % (12.1-15.1) L 01/08/24 12:52 Plt Count 124 10^3/cmm (157-399) L 01/08/24 12:52 MPV 10.0 fL (7.4-10.4) 01/08/24 12:52 Neut % (Auto) 63.6 % 01/08/24 12:52 Lymph % (Auto) 25.7 % 01/08/24 12:52 Kemper % (Auto) 8.4 % 01/08/24 12:52 Eos % (Auto) 1.8 % 01/08/24 12:52 Baso % (Auto) 0.3 % 01/08/24 12:52 Neut # (Auto) 3.78 10^3/uL (1.8-7.7) 01/08/24 12:52 Lymph # (Auto) 1.5 10^3/uL (0.8-4.8) 01/08/24 12:52 Kemper # (Auto) 0.5 10^3/uL (0.2-0.9) 01/08/24 12:52 Eos # (Auto) 0.1 10^3/uL (0.0-0.8) 01/08/24 12:52 Baso # (Auto) 0.0 10^3/uL (0.0-0.1) 01/08/24 12:52 Nucleated RBC % (auto) 0 % 01/08/24 12:52 Nucleated RBCs # 0.0 /100WBC 01/08/24 12:52 Sodium 140 mmol/L (136-145) 01/08/24 12:52 Potassium 4.2 mmol/L (3.5-5.1) 01/08/24 12:52 Chloride 103 mmol/L (98-107) 01/08/24 12:52 Carbon Dioxide 25 mmol/L (22-29) 01/08/24 12:52 Anion Gap 16.2 (5-19) 01/08/24 12:52 BUN 20 mg/dL (8-23) 01/08/24 12:52 Creatinine 1.2 mg/dL (0.7-1.2) 01/08/24 12:52 GFR Calculation Not Reportable 01/08/24 12:52 Glucose 95 mg/dL (65-115) 01/08/24 12:52 Calculated Osmolality 292 mOsm/kg (285-295) 01/08/24 12:52 Calcium 9.4 mg/dL (8.5-10.5) 01/08/24 12:52 Total Bilirubin 0.8 mg/dL (0.15-1.2) 01/08/24 12:52 AST 47 U/L (0-40) H 01/08/24 12:52 ALT 64 U/L (0-41) H 01/08/24 12:52 Alkaline Phosphatase 79 U/L (40-130) 01/08/24 12:52 Total Protein 8.3 g/dL (6.6-8.7) 01/08/24 12:52 Albumin 4.8 g/dL (3.5-5.2) 01/08/24 12:52 Globulin 3.5 g/dL (1.3-4.6) 01/08/24 12:52 All radiology interpretation(s) finalized by discharge Discharge Plan Discharge Patient Disposition: Home Clinical Impression: Occipital neuralgia of left side Condition: Stable Prescriptions: No Action ramipril 5 mg capsule 7.5 mg PO DAILY Qty: 120 3RF (DME) orthopedic shoe package and orthotics See Rx Instructions .Route .MEDSUPPLY Qty: 1 0RF Rx Instructions: As directed amlodipine 10 mg tablet 10 mg PO DAILY Qty: 90 3RF metronidazole 500 mg tablet 500 mg PO TID ciprofloxacin HCl 500 mg tablet 500 mg PO BID Discharge Orders: Discharge ED (Routine); Ordered 01/08/24 Ordered By: Ke Wiggins Referrals: Viky Washington, [employer] [Primary Care Provider] - Discharge Diet: Usual diet Discharge Activity: Increase activity as tolerated Patient Instructions: Opioid Safety, Pain Management Activity Restrictions/Additional Instructions: Thank you for choosing [facility] for your healthcare needs today. It is very important that you follow up as instructed or that you return to the Emergency Department should you have concerns or if your condition changes or worsens in any way. You were seen today with complaint of headache on the base of the skull really occipital region on the left. CT of your head was negative suspect that the pain you are having is occipital neuralgia. Will refer you to see the neurologist for further evaluation. Coding Level of Care Code ED Fire Watcher for Agustin Hankins NIH stroke score NIHSS Level Of Consciousness - 1a: 0 Level Of Consciousness Questions - 1b: Both Correct Level Of Consciousness Commands - 1c: Both Correct Best Gaze - 2: Normal Visual Chung - 3: No Visual Loss Facial Palsy - 4: Normal Motor Arm Right - 5: No Drift Motor Arm Left - 5: No Drift Motor Leg Right - 6: No Drift Motor Leg Left - 6: No Drift Limb Ataxia - 7: Absent Sensory - 8: Normal Best Language - 9: No Aphasia Dysarthia - 10: Normal Extinction And Inattention - 11: 0 Score Total Score: 0
[2024-01-08 12:45] VITALS: BP 155/80; PULSE 50; O2SAT 96
[2024-01-08 12:58] LABS: Basophils % 0.3 %; Eosinophils # 0.1 10^3/uL (0.0-0.8); Eosinophils % 1.8 %; Hematocrit 45.6 % (37-53); Lymphocytes # 1.5 10^3/uL (0.8-4.8); Lymphocytes % 25.7 %; Mean Corpuscular HGB Conc 33.8 g/dL (30-55); Mean Corpuscular Hemoglobin 29.9 pg (27-33); Mean Corpuscular Volume 88.5 fl (82-101); Monocytes # 0.5 10^3/uL (0.2-0.9); Monocytes % 8.4 %; Neutrophils # 3.78 10^3/uL (1.8-7.7); Neutrophils % 63.6 %; Nucleated Red Blood Cells % 0 %; Platelet Count 124 10^3/cmm (157-399); Red Blood Count 5.15 10^6/uL (3.85-5.65); Red Cell Distribution Width 11.9 % (12.1-15.1); White Blood Count 5.95 10^3/uL (3.29-11.43)
[2024-01-08 13:10] VITALS: BP 143/78; PULSE 57; O2SAT 97
[2024-01-08 13:23] LABS: Alanine Aminotransferase 64 U/L (0-41); Albumin Level 4.8 g/dL (3.5-5.2); Alkaline Phosphatase 79 U/L (40-130); Anion Gap 16.2 (5-19); Aspartate Amino Transferase 47 U/L (0-40); Blood Urea Nitrogen 20 mg/dL (8-23); Calcium 9.4 mg/dL (8.5-10.5); Carbon Dioxide 25 mmol/L (22-29); Chloride 103 mmol/L (98-107); Creatinine Clr Calc Pharmacy 61.3683; Globulin 3.5 g/dL (1.3-4.6); Glucose 95 mg/dL (65-115); Osmolality Calculated 292 mOsm/kg (285-295); Potassium 4.2 mmol/L (3.5-5.1); Sodium 140 mmol/L (136-145); Total Bilirubin 0.8 mg/dL (0.15-1.2); Total Protein 8.3 g/dL (6.6-8.7)
[2024-01-08 13:30] VITALS: BP 165/86; PULSE 56; O2SAT 97
[2024-01-08 13:54] VITALS: BP 145/82; PULSE 56; O2SAT 96
--- NOTE | 2024-01-09 07:40 | DCPLANNER ---
messaged neuro for er f/u
== END 2024-01-08 13:55 | disposition home or self-care (01) ==
PROVIDERS: Emergency Medicine; Emergency Provider Family Medicine; PCP Nurse Practitioner
DX: M54.81 Occipital neuralgia (principal); I10 Essential (primary) hypertension; E78.5 Hyperlipidemia, unspecified
CPT/HCPCS: 70450; 80053; 85025; 99284

== ENCOUNTER 2024-01-08 14:21 | Outpatient (CLI) | payer OTHER, SELFPAY ==
--- NOTE | 2024-01-08 14:30 | CTR_ITS ---
PROCEDURE INFORMATION: Exam: CTA Abdominal Aorta and Bilateral Lower Extremities (Run-off) With Contrast Exam date and time: 01/08/2024 3:12 PM Age: 78 years old Clinical indication: Condition or disease; Other: Pad; Prior surgery; Surgery date: 6+ months; Surgery type: Appy, hernia TECHNIQUE: Imaging protocol: Computed tomographic angiography of the of the abdominal aorta, pelvis and bilateral lower extremities with contrast. 3D rendering (Not supervised by radiologist): MIP and/or 3D reconstructed images were created by the technologist. Radiation optimization: All CT scans at this facility use at least one of these dose optimization techniques: automated exposure control; mA and/or kV adjustment per patient size (includes targeted exams where dose is matched to clinical indication); or iterative reconstruction. Contrast material: OMNI 350; Contrast volume: 125 ml; Contrast route: INTRAVENOUS (IV); COMPARISON: CT abdomen pelvis w con* [id number] 05/22/2023 3:13 PM RADIATION DOSE METRICS: Total DLP (mGy-cm): 1654.55 FINDINGS: Aorta: The aorta has [id number] atherosclerotic changes. No aneurysmal dilatation or dissection. Celiac trunk and mesenteric arteries: No occlusion or significant stenosis. Renal arteries: No occlusion or significant stenosis. Right iliac arteries: No occlusion or significant stenosis. Right femoral/popliteal arteries: The right common femoral artery has 50% stenosis. Right infrapopliteal arteries: The right lower extremity runoff vessels multifocal atherosclerotic changes notable for multiple severe stenoses in the distal anterior tibial artery and severe multifocal stenoses in the posterior tibial artery and focal severe stenosis in the distal peroneal artery. Left iliac arteries: No occlusion or significant stenosis. Left femoral/popliteal arteries: There is 30% stenosis of the left common femoral artery. The left SFA has scattered mild stenoses. The left popliteal artery is difficult to visualized due to beam hardening artifact related to left-sided knee arthroplasty. Beyond the arthroplasty of the vessel appears patent. Left infrapopliteal arteries: The left peroneal artery has severe stenosis proximally and distally without occlusion. There is severe stenosis in the proximal anterior tibial artery and scattered moderate to severe stenoses distally. The posterior tibial artery has multifocal severe stenoses especially distally without visible occlusion. Liver: No mass. Gallbladder and biliary ducts: Gallstones with mildly thickened gallbladder wall in the fundus. No pericholecystic inflammation is seen. Pancreas: Unremarkable. No mass. No ductal dilation. Spleen: Normal. No splenomegaly. Adrenal glands: There is a 12 mm left adrenal gland nodule which is unchanged and statistically most likely an adenoma. Kidneys and ureters: Simple left renal cyst anteriorly in the upper pole measuring 1.4 cm is unchanged. No hydronephrosis. Nonobstructing 4 mm left renal stone is unchanged. Stomach and bowel: Colonic diverticulosis is present without diverticulitis. There is a small lipoma in the 3rd portion of the duodenum which is unchanged. There is minimal inflammation adjacent to the sigmoid for example on series 8, image 115. Appendix: Previous appendectomy changes again present. Urinary bladder: Unremarkable. No mass. Reproductive: Enlarged prostate gland with central defect suggesting possible TURP procedure. Intraperitoneal space: No free air. Lymph nodes: No lymphadenopathy. Bones/joints: Left total knee replacement. Unchanged probable bone island in L3. Soft tissues: There is a small fat containing umbilical hernia present. CT/CT angio abd aorta runof [id number] IMPRESSION: 1. Multifocal atherosclerotic disease with numerous severe stenoses in the lower extremity runoff vessels without visible occlusion, as described. 2. Gallstones with mildly thickened gallbladder wall in the fundus. No pericholecystic inflammation is seen. Consider right upper quadrant ultrasound follow-up. 3. Colonic diverticulosis with possible mild acute diverticulitis changes. Correlate with clinical findings.
[2024-01-08] MEDS: iohexol 350 mg/mL 500 mL Btl (per mL) IV (15:28)
== END 2024-01-08 14:22 | disposition home or self-care (01) ==
LOC: RAD 14:22
PROVIDERS: PCP Nurse Practitioner; Visit Provider Internal Medicine
DX: I73.9 Peripheral vascular disease, unspecified (principal); I70.0 Atherosclerosis of aorta; I70.201 Unspecified atherosclerosis of native arteries of extremities, right leg; K80.20 Calculus of gallbladder without cholecystitis without obstruction; D35.02 Benign neoplasm of left adrenal gland; N28.1 Cyst of kidney, acquired; K57.90 Diverticulosis of intestine, part unspecified, without perforation or abscess without bleeding; Z90.49 Acquired absence of other specified parts of digestive tract
CPT/HCPCS: 75635

== ENCOUNTER → 2024-01-21 09:32 | Outpatient (BNVA) | payer OTHER, SELFPAY | PROVIDERS: PCP Nurse Practitioner; Visit Provider Podiatrist Foot & Ankle Surgery | DX: I73.9 Peripheral vascular disease, unspecified (principal); M21.41 Flat foot [pes planus] (acquired), right foot; M21.42 Flat foot [pes planus] (acquired), left foot; L60.3 Nail dystrophy; M20.41 Other hammer toe(s) (acquired), right foot; M20.42 Other hammer toe(s) (acquired), left foot | CPT/HCPCS: 99213 ==